=== PATIENT | male | born 1960 | race Two or more races ===

== ENCOUNTER 2018-08-05 06:30 | Emergency (ER) | payer MEDICAID, OTHER ==
[~2018-08-05] VITALS: Ht 172.7 cm; Wt 170.1 kg
[2018-08-05] MEDS ORDERED: ETOMIDATE (2MG/ML) 20ML VIAL IV ONE (08:30)
[2018-08-05 08:51] LABS: Basophils # (auto) 0 uL; Basophils % (auto) 0.3 % (0.0-2.0); Eosinophils # (auto) 0.1 uL; Eosinophils % (auto) 0.6 % (0.0-7.0); Lymphocytes # (auto) 1.3 uL; Lymphocytes % (auto) 14.9 % (10.0-50.0); Monocytes # (auto) 0.3 uL; Nucleated Red Blood Cells % 0.1 %
[2018-08-05 08:53] LABS: Hematocrit 54.5 % (41.0-53.0); Mean Corpuscular Hemoglobin 30.9 pg (28.0-32.0); Mean Corpuscular Hgb Conc. 33.1 g/dL (32.0-36.0); Mean Corpuscular Volume 93.2 fL (80.0-100.0); Monocytes % (auto) 3.4 % (0.0-12.0); Neutrophils # (auto) 6.9 uL; Neutrophils % (auto) 80.8 % (37.0-80.0); Platelet Count (auto) 225 10^3/uL (140-450); Red Blood Cells 5.85 10^6/uL (4.5-5.90); Red Cell Distribution Width 15.2 % (11.8-14.3); White Blood Cell 8.5 10^3/uL (4.4-10.8)
[2018-08-05 09:08] LABS: Albumin 3.3 g/dL (3.4-5.0); Calcium 7.9 mg/dL (8.5-10.1); Potassium 4.2 mmol/L (3.5-5.1)
[2018-08-05 09:13] LABS: BUN/Creatinine Ratio 16.3; Bilirubin, Total 0.4 mg/dL (0.2-1.0); Total Protein 7.4 g/dL (6.4-8.2)
[2018-08-05] MEDS ORDERED: SODIUM CHLORIDE 0.9% 1,000 ML IV ONE (09:43)
[2018-08-05 11:57] VITALS: BP 137/100
== END 2018-08-05 12:11 | disposition home or self-care (01) ==
LOC: ER 06:30
DX: S43.015A Anterior dislocation of left humerus, initial encounter (principal); W18.39XA Other fall on same level, initial encounter; Y93.89 Activity, other specified; Y99.8 Other external cause status; Y92.89 Other specified places as the place of occurrence of the external cause
CPT/HCPCS: 23650; 36415; 73020; 80053; 80320; 85025

== ENCOUNTER 2022-09-14 07:54 | Inpatient (IN) | payer MEDICAID ==
[~2022-09-14] VITALS: Ht 172.7 cm; Wt 153.5 kg
[2022-09-14 09:01] LABS: Basophils # (auto) 0.1 10 ^3/uL (0-0.2); Basophils % (auto) 1.2 % (0.0-2.0); Eosinophils # (auto) 0.1 10 ^3/uL (0-0.8); Eosinophils % (auto) 2.2 % (0.0-7.0); Hematocrit 51.6 % (41.0-53.0); Lymphocytes # (auto) 0.9 10 ^3/uL (0.4-5.4); Lymphocytes % (auto) 14.2 % (10.0-50.0); Mean Corpuscular Hemoglobin 33.6 pg (28.0-32.0); Mean Corpuscular Hgb Conc. 34.9 g/dL (32.0-36.0); Mean Corpuscular Volume 96.1 fL (80.0-100.0); Monocytes # (auto) 0.4 10 ^3/uL (0-1.3); Monocytes % (auto) 6.8 % (0.0-12.0); Neutrophils # (auto) 4.9 10 ^3/uL (1.6-8.6); Neutrophils % (auto) 75.6 % (37.0-80.0); Nucleated Red Blood Cells % 0.2 %; Red Blood Cells 5.37 10^6/uL (4.5-5.90); Red Cell Distribution Width 15.7 % (11.8-14.3); White Blood Cell 6.5 10^3/uL (4.4-10.8)
[2022-09-14 09:13] LABS: Albumin 3.3 g/dL (3.4-5.0); BUN/Creatinine Ratio 16.3; Bilirubin, Total 2.2 mg/dL (0.2-1.0); Calcium 8.7 mg/dL (8.5-10.1); Potassium 3.8 mmol/L (3.5-5.1); Total Protein 7.3 g/dL (6.4-8.2)
[2022-09-14 11:15] LABS: Urine Bacteria NONE SEEN /hpf (None Seen); Urine Blood Negative /uL (Negative); Urine Mucus FEW (None Seen); Urine Specific Gravity 1.025 (1.001-1.035); Urine WBC 10 /hpf (0 - 3)
[2022-09-14] MEDS ORDERED: ACETAMINOPHEN 325 MG TAB PO PRN (12:15)
[2022-09-14] MEDS ORDERED: DOCUSATE SOD 100 MG CAP PO PRN (12:15)
[2022-09-14] MEDS ORDERED: MORPHINE SULFATE INJ 2 MG/ml SYRG IV PRN (12:15)
[2022-09-14] MEDS ORDERED: ONDANSETRON HCL 4 MG/2 ML VIAL IV PRN (12:15)
[2022-09-14] MEDS ORDERED: ENOXAPARIN SOD 40 MG/0.4 ML SYRINGE SC ONE (14:00)
[2022-09-14] MEDS ORDERED: FUROSEMIDE 40 MG/4 ML VIAL IV ONE (14:00)
[2022-09-14] MEDS ORDERED: hydrALAZINE HCL 20 MG/ML VL IV PRN (14:00)
[2022-09-14] MEDS ORDERED: cefTRIAXone 1GM/50ML D5W 50 ML IV ONE (14:15)
[2022-09-14] MEDS ORDERED: METOPROLOL TARTRATE 25 MG TAB PO ONE (17:00)
[2022-09-14 22:00] VITALS: BP 144/70
[2022-09-14] MEDS: METOPROLOL TARTRATE 25 MG TAB PO SCH (23:17)
[2022-09-15 05:00] VITALS: BP 126/94
[2022-09-15 05:46] LABS: Basophils # (auto) 0.1 10 ^3/uL (0-0.2); Eosinophils # (auto) 0.4 10 ^3/uL (0-0.8); Lymphocytes # (auto) 1.1 10 ^3/uL (0.4-5.4); Monocytes # (auto) 0.5 10 ^3/uL (0-1.3); Neutrophils # (auto) 3.9 10 ^3/uL (1.6-8.6)
[2022-09-15 05:48] LABS: Basophils % (auto) 1.3 % (0.0-2.0); Eosinophils % (auto) 6.9 % (0.0-7.0); Hematocrit 49.8 % (41.0-53.0); Lymphocytes % (auto) 19.1 % (10.0-50.0); Mean Corpuscular Hemoglobin 34.6 pg (28.0-32.0); Mean Corpuscular Volume 96.1 fL (80.0-100.0); Neutrophils % (auto) 64.7 % (37.0-80.0); Nucleated Red Blood Cells % 0.3 %; Red Blood Cells 5.19 10^6/uL (4.5-5.90); Red Cell Distribution Width 15.9 % (11.8-14.3)
[2022-09-15 06:13] LABS: Calcium 8.5 mg/dL (8.5-10.1); Potassium 3.4 mmol/L (3.5-5.1); Total Protein 6.8 g/dL (6.4-8.2)
[2022-09-15 06:15] LABS: Albumin 2.9 g/dL (3.4-5.0); BUN/Creatinine Ratio 17.6
[2022-09-15] MEDS: cefTRIAXone 1GM/50ML D5W 50 ML IV SCH (08:52)
[2022-09-15 09:00] VITALS: BP 134/95
[2022-09-15] MEDS: ENOXAPARIN SOD 40 MG/0.4 ML SYRINGE SC SCH (09:31)
[2022-09-15] MEDS: METOPROLOL TARTRATE 25 MG TAB PO SCH ×2 (09:31→21:55)
[2022-09-15] MEDS: FUROSEMIDE 40 MG/4 ML VIAL IV SCH (09:31)
[2022-09-15] MEDS ORDERED: cefTRIAXone 1GM/50ML D5W 50 ML IV SCH (10:00)
[2022-09-15 13:00] VITALS: BP 141/98
[2022-09-15 17:00] VITALS: BP 129/79
[2022-09-15 22:00] VITALS: BP 116/69
[2022-09-16 05:00] VITALS: BP 105/65
[2022-09-16 09:00] VITALS: BP 110/74
[2022-09-16] MEDS: ENOXAPARIN SOD 40 MG/0.4 ML SYRINGE SC SCH (10:09)
[2022-09-16] MEDS: cefTRIAXone 1GM/50ML D5W 50 ML IV SCH (10:09)
[2022-09-16] MEDS: METOPROLOL TARTRATE 25 MG TAB PO SCH ×2 (10:10→21:48)
[2022-09-16] MEDS: FUROSEMIDE 40 MG/4 ML VIAL IV SCH (10:10)
[2022-09-16 13:00] VITALS: BP 127/87
[2022-09-16 16:28] VITALS: BP 105/78
[2022-09-16 22:00] VITALS: BP 109/72
[2022-09-17 05:00] VITALS: BP 120/91
[2022-09-17 08:35] VITALS: BP 122/77
[2022-09-17] MEDS: METOPROLOL TARTRATE 25 MG TAB PO SCH ×2 (09:38→21:34)
[2022-09-17] MEDS: FUROSEMIDE 40 MG/4 ML VIAL IV SCH (09:38)
[2022-09-17] MEDS: ENOXAPARIN SOD 40 MG/0.4 ML SYRINGE SC SCH (09:38)
[2022-09-17] MEDS: cefTRIAXone 1GM/50ML D5W 50 ML IV SCH (11:48)
[2022-09-17 12:43] VITALS: BP 115/76
[2022-09-17 16:00] VITALS: BP 122/83
[2022-09-17 22:51] VITALS: BP 111/85
[2022-09-18 05:00] VITALS: BP 133/93
[2022-09-18 09:00] VITALS: BP 143/104
[2022-09-18] MEDS: cefTRIAXone 1GM/50ML D5W 50 ML IV SCH (09:43)
[2022-09-18] MEDS: ENOXAPARIN SOD 40 MG/0.4 ML SYRINGE SC SCH (09:44)
[2022-09-18] MEDS: METOPROLOL TARTRATE 25 MG TAB PO SCH ×2 (09:45→22:28)
[2022-09-18] MEDS: FUROSEMIDE 40 MG/4 ML VIAL IV SCH (09:45)
[2022-09-18 13:00] VITALS: BP 126/72
[2022-09-18 17:00] VITALS: BP 135/73
[2022-09-18 22:00] VITALS: BP 110/85
[2022-09-19 05:00] VITALS: BP 112/68
[2022-09-19 08:30] VITALS: BP 107/64
[2022-09-19] MEDS: FUROSEMIDE 40 MG/4 ML VIAL IV SCH (09:46)
[2022-09-19] MEDS: METOPROLOL TARTRATE 25 MG TAB PO SCH ×2 (09:46→22:14)
[2022-09-19] MEDS: ENOXAPARIN SOD 40 MG/0.4 ML SYRINGE SC SCH (09:47)
[2022-09-19] MEDS: cefTRIAXone 1GM/50ML D5W 50 ML IV SCH (09:47)
[2022-09-19 12:30] VITALS: BP 131/90
[2022-09-19 17:00] VITALS: BP 114/83
[2022-09-19 22:00] VITALS: BP 119/86
[2022-09-20 05:00] VITALS: BP 122/78
[2022-09-20] MEDS: HYDROcodone-ACET 5/325MG TAB PO PRN ×2 (06:39→15:58)
[2022-09-20] MEDS: FUROSEMIDE 40 MG/4 ML VIAL IV SCH (08:26)
[2022-09-20] MEDS: ENOXAPARIN SOD 40 MG/0.4 ML SYRINGE SC SCH (08:26)
[2022-09-20] MEDS: cefTRIAXone 1GM/50ML D5W 50 ML IV SCH (08:26)
[2022-09-20] MEDS: METOPROLOL TARTRATE 25 MG TAB PO SCH ×2 (08:26→20:54)
[2022-09-20 08:30] VITALS: BP 134/99
[2022-09-20] MEDS ORDERED: ADENOSINE IV STA (10:28)
[2022-09-20] MEDS ORDERED: GIVE UN DILUTED IV STA (10:28)
[2022-09-20 10:30] VITALS: BP 115/75
[2022-09-20 12:30] VITALS: BP 108/79
[2022-09-20 17:00] VITALS: BP 119/79
[2022-09-21 05:00] VITALS: BP 109/74
[2022-09-21] MEDS: HYDROcodone-ACET 5/325MG TAB PO PRN (05:49)
[2022-09-21 09:00] VITALS: BP 119/75
[2022-09-21] MEDS: cefTRIAXone 1GM/50ML D5W 50 ML IV SCH (09:27)
[2022-09-21] MEDS: FUROSEMIDE 40 MG/4 ML VIAL IV SCH (09:27)
[2022-09-21] MEDS: ENOXAPARIN SOD 40 MG/0.4 ML SYRINGE SC SCH (09:27)
[2022-09-21] MEDS: METOPROLOL TARTRATE 25 MG TAB PO SCH ×2 (09:28→21:42)
[2022-09-21] MEDS ORDERED: LISI2.5T47 PO (11:15)
[2022-09-21] MEDS ORDERED: ATOR20TA PO (11:15)
[2022-09-21] MEDS ORDERED: MET25T PO (11:15)
[2022-09-21] MEDS ORDERED: FURO1TAB31 PO (11:15)
[2022-09-21 13:00] VITALS: BP 125/73
[2022-09-21 14:47] LABS: INR 1.12 (0.9-1.15)
[2022-09-21 17:00] VITALS: BP 129/74
[2022-09-21 22:00] VITALS: BP 118/80
[2022-09-22 05:00] VITALS: BP 82/57
[2022-09-22 09:00] VITALS: BP 105/66
[2022-09-22] MEDS: FUROSEMIDE 40 MG/4 ML VIAL IV SCH (09:35)
[2022-09-22] MEDS: METOPROLOL TARTRATE 25 MG TAB PO SCH ×2 (09:35→21:40)
[2022-09-22] MEDS: ENOXAPARIN SOD 40 MG/0.4 ML SYRINGE SC SCH (09:36)
[2022-09-22 13:00] VITALS: BP 120/77
[2022-09-23 05:00] VITALS: BP 117/80
[2022-09-23 08:29] VITALS: BP 148/92
[2022-09-23 09:19] LABS: Basophils # (auto) 0 10 ^3/uL (0-0.2); Basophils % (auto) 0.6 % (0.0-2.0); Eosinophils # (auto) 0.5 10 ^3/uL (0-0.8); Eosinophils % (auto) 8.9 % (0.0-7.0); Hematocrit 51.4 % (41.0-53.0); Hemoglobin 17.7 g/dL (13.5-17.5); Lymphocytes # (auto) 1.2 10 ^3/uL (0.4-5.4); Lymphocytes % (auto) 22.3 % (10.0-50.0); Mean Corpuscular Hemoglobin 33.7 pg (28.0-32.0); Mean Corpuscular Hgb Conc. 34.4 g/dL (32.0-36.0); Monocytes # (auto) 0.5 10 ^3/uL (0-1.3); Monocytes % (auto) 8.6 % (0.0-12.0); Neutrophils # (auto) 3.3 10 ^3/uL (1.6-8.6); Neutrophils % (auto) 59.6 % (37.0-80.0); Nucleated Red Blood Cells % 0.1 %; Red Blood Cells 5.25 10^6/uL (4.5-5.90); Red Cell Distribution Width 15.5 % (11.8-14.3); White Blood Cell 5.5 10^3/uL (4.4-10.8)
[2022-09-23] MEDS: ENOXAPARIN SOD 40 MG/0.4 ML SYRINGE SC SCH (09:30)
[2022-09-23] MEDS: METOPROLOL TARTRATE 25 MG TAB PO SCH ×2 (09:30→22:56)
[2022-09-23] MEDS: FUROSEMIDE 40 MG/4 ML VIAL IV SCH (09:30)
[2022-09-23 09:38] LABS: BUN/Creatinine Ratio 14.1; Calcium 8.6 mg/dL (8.5-10.1); Potassium 4.6 mmol/L (3.5-5.1)
[2022-09-23] MEDS ORDERED: IODIXANOL 320MG/ML 100ML BTL IV ONE ×2 (09:49→10:39)
[2022-09-23] MEDS ORDERED: ANGIOMAX 250 MG VIAL IV ONE ×2 (09:55→10:44)
[2022-09-23] MEDS ORDERED: VERAPAMIL 2.5MG/ML INJ 2ML VIAL IV ONE (09:55)
[2022-09-23] MEDS ORDERED: MIDAZOLAM HCL 2MG/2ML 2ml VIAL (1mg/ml) ONE (09:56)
[2022-09-23] MEDS ORDERED: fentaNYL CITRATE 100 MCG/2 ML VL ONE (09:56)
[2022-09-23] MEDS ORDERED: SODIUM CHL 0.9% 0 ML ONE (09:57)
[2022-09-23] MEDS ORDERED: HEPARIN SODIUM (PORCINE) 5000 UNITS/ML 1ML VIAL ONE (09:58)
[2022-09-23] MEDS ORDERED: LIDOCAINE 2%HCL (LOCAL ANESTH.) INJ 10ml MDV ONE (09:58)
[2022-09-23] MEDS ORDERED: SODIUM CHL 0.9% 50 ML ONE (10:44)
[2022-09-23] MEDS ORDERED: ASPirin 325 MG TAB ONE (10:50)
[2022-09-23] MEDS ORDERED: TICAGRELOR 90 MG TAB ONE (10:50)
[2022-09-23] MEDS: HYDROcodone-ACET 5/325MG TAB PO PRN (12:30)
[2022-09-23 16:28] VITALS: BP 113/82
[2022-09-23] MEDS ORDERED: CLOPIDOGREL 300 MG TAB PO ONE (19:30)
[2022-09-23 22:00] VITALS: BP 109/81
[2022-09-24 05:00] VITALS: BP 115/78
[2022-09-24 09:00] VITALS: BP 123/90
[2022-09-24] MEDS ORDERED: CLOPIDOGREL BISULFATE 75 MG TAB PO SCH (10:00)
[2022-09-24] MEDS: ENOXAPARIN SOD 40 MG/0.4 ML SYRINGE SC SCH (10:10)
[2022-09-24] MEDS: METOPROLOL TARTRATE 25 MG TAB PO SCH (10:11)
[2022-09-24] MEDS: FUROSEMIDE 40 MG/4 ML VIAL IV SCH (10:11)
[2022-09-24] MEDS ORDERED: ASPirin 81 mg TAB PO ONE (11:00)
[2022-09-24 13:00] VITALS: BP 123/87
[2022-09-24 16:28] VITALS: BP 120/78
[2022-09-24 17:06] VITALS: BP 129/87
[2022-09-25] MEDS ORDERED: ASPirin 81 mg TAB PO SCH (10:00)
== END 2022-09-24 17:10 | disposition home or self-care (01) | DRG 710 ==
LOC: ER 07:54 → EDBD 07:54 → TELE 12:19 → TELE-WESTW 21:58
PROVIDERS: ADMIT Internal Medicine; ATTEND Internal Medicine
PROC: 4A023N7 Measurement of Cardiac Sampling and Pressure, Left Heart, Percutaneous Approach (ICD-10-PCS; principal; 2022-09-23)
PROC: 02703ZZ Dilation of Coronary Artery, One Artery, Percutaneous Approach (ICD-10-PCS; 2022-09-23)
PROC: B2111ZZ Fluoroscopy of Multiple Coronary Arteries using Low Osmolar Contrast (ICD-10-PCS; 2022-09-23)
DX: A41.9 Sepsis, unspecified organism (principal); I50.33 Acute on chronic diastolic (congestive) heart failure; I47.20 Ventricular tachycardia, unspecified; E44.0 Moderate protein-calorie malnutrition; E88.09 Other disorders of plasma-protein metabolism, not elsewhere classified; I11.0 Hypertensive heart disease with heart failure; I25.119 Atherosclerotic heart disease of native coronary artery with unspecified angina pectoris; Z20.822 Contact with and (suspected) exposure to COVID-19; N30.00 Acute cystitis without hematuria; I16.1 Hypertensive emergency; E66.01 Morbid (severe) obesity due to excess calories; Z80.3 Family history of malignant neoplasm of breast; Z85.528 Personal history of other malignant neoplasm of kidney; Z82.49 Family history of ischemic heart disease and other diseases of the circulatory system; Z68.43 Body mass index [BMI] 50.0-59.9, adult
CPT/HCPCS: 36415; 71045; 73562; 78452; 80048; 80053; 81001; 83880; 84484; 85025; 85610; 86850; 86900; 86901; 87086; 87426; 93005; 93017; 93306; 99152; 99153; G0378; J0153; J0696; J2001; J2250; J2405; Q9967

== ENCOUNTER 2024-08-06 11:42 | Inpatient (IN) | payer MEDICAID ==
[~2024-08-06] VITALS: Ht 170.2 cm; Wt 159.3 kg
[~2024-08-06 11:42] MED LIST: ATOR20TA PO; ATOR80TA PO; CLOP75TA70 PO; FURO1TAB31 PO; HYDR-4798 PO; HYDR12.59 PO; LISI2.5T47 PO; MET25T PO; METO-159 PO; NALO1TAB4 PO
--- NOTE | 2024-08-06 11:49 | ED.PDOC ---
SOB-HPI HPI Comments 64-year-old male brought in by EMS from home complaining of shortness of breath for the last week. Patient states the symptoms were worse when lying flat, and he is unable to sleep due to the difficulty breathing when lying flat, which causes anxiety. He also states he has had a cough with sputum. He had sharp chest pain 2 days ago but denies any chest pain now. States he has a headache and cold sweats, and states that he becomes lightheaded when ambulating. He denies any nausea, vomiting, diaphoresis or edema. Of note, blood pressure recorded by EMS was 184/110. Time Seen by MD: 11:46 Primary Care Provider: DENIES Past Medical History PAST MEDICAL HISTORY: Cancer, HTN Surgical History: Hernia Repair Family History Family History: Reviewed,noncontributory to illness Social History Smoker: Quit Greater Than 1 Year Alcohol: Occasionally Drugs: Denies Drug Use Lives In: Home Physical Exam General Appearance: Mild Distress, Obese HEENT: Other (Pupils symmetric, moist mucous membranes) Neck: Full Range of Motion, Normal Inspection Respiratory: Decreased Breath Sounds, No Accessory Muscle Use, Respiratory Distress, Rhonchi Cardiovascular: No Edema, No JVD, Regular Rate/Rhythm Breast Exam: Deferred Gastrointestinal: Non Tender, Soft Genitalia: Deferred Pelvic: Deferred Rectal: Deferred Extremities: Normal inspection, Normal range of motion, Non-tender, No pedal edema Neurologic: Alert (Oriented x4), Normal Affect, Normal Mood, Other (Ambulatory. No gross focal deficit.) Cerebellar Function: NOT DONE Reflexes: NOT DONE Skin: Dry, Normal Color, Warm Lymphatic: NOT DONE EKG EKG : Comments Sinus rhythm, rate 63, normal intervals, normal axis, normal QRS, no ST/T changes. Was a procedure done? Was a procedure done?: No Differential Dx Differential Diagnosis: Asthma, Bronchitis, CHF, COPD, Hypertension, Hyperventilation, Pneumonia, Pulmonary Embolism, Respiratory Distress, URI X-Ray, Labs, Meds, VS Vital Signs Date Time Temp Pulse Resp B/P (MAP) Pulse Ox O2 Delivery O2 Flow Rate FiO2 08/06/24 17:32 97.9 68 19 177/108 (131) 95 97.9 08/06/24 17:32 177/108 08/06/24 14:57 67 16 145/80 (101) 94 08/06/24 14:57 67 16 94 Room Air* 0 21 08/06/24 14:57 145/80 08/06/24 12:16 20 94 Room Air* 0 21 08/06/24 11:46 97.5 65 20 184/110 (134) 95 08/06/24 11:45 Room Air* 0 21 08/06/24 11:44 64 Lab Test 08/06/24 15:05 08/06/24 14:23 08/06/24 13:00 Range/Units Influenza Type A Antigen Negative Negative Influenza Type B Antigen Negative Negative SARS-CoV-2 Antigen (Rapid) Negative NEGATIVE Troponin I High Sensitivity 9 11 </=54 ng/L White Blood Count 7.2 4.4-10.8 10^3/uL Red Blood Count 5.92 H 4.5-5.90 10^6/uL Hemoglobin 18.4 H 13.5-17.5 g/dL Hematocrit 55.0 H 41.0-53.0 % Mean Corpuscular Volume 93.0 80.0-100.0 fL Mean Corpuscular Hemoglobin 31.1 28.0-32.0 pg Mean Corpuscular Hemoglobin Concent 33.4 32.0-36.0 g/dL Red Cell Distribution Width 14.8 H 11.8-14.3 % Platelet Count 194 140-450 10^3/uL Mean Platelet Volume 8.0 6.9-10.8 fL Neutrophils (%) (Auto) 65.1 37.0-80.0 % Lymphocytes (%) (Auto) 22.0 10.0-50.0 % Monocytes (%) (Auto) 5.3 0.0-12.0 % Eosinophils (%) (Auto) 6.4 0.0-7.0 % Basophils (%) (Auto) 1.2 0.0-2.0 % Neutrophils # (Auto) 4.7 1.6-8.6 10 ^3/uL Lymphocytes # (Auto) 1.6 0.4-5.4 10 ^3/uL Monocytes # (Auto) 0.4 0-1.3 10 ^3/uL Eosinophils # (Auto) 0.5 0-0.8 10 ^3/uL Basophils # (Auto) 0.1 0-0.2 10 ^3/uL Nucleated Red Blood Cells 0.6 % Sodium Level 139 136-145 mmol/L Potassium Level 4.6 3.5-5.1 mmol/L Chloride Level 105 98-107 mmol/L Carbon Dioxide Level 27 20-31 mmol/L Anion Gap 7 5-15 Blood Urea Nitrogen 15 9-23 mg/dL Creatinine 0.90 0.700-1.30 mg/dL Glomerular Filtration Rate Calc 96 >90 mL/min BUN/Creatinine Ratio 16.7 10.0-20.0 Serum Glucose 113 H 74-106 mg/dL Lactic Acid Level 1.0 0.4-2.0 mmol/L Calcium Level 9.9 8.7-10.4 mg/dL B-Type Natriuretic Peptide 258.39 0-100 pg/mL Current Medications Medications (Trade) Dose Ordered Sig/Tayo Route Start Time Stop Time Status Last Admin Albuterol (Ventolin Medneb) 5 mg ONCE ONCE NEB 08/06/24 12:00 08/06/24 12:01 DC 08/06/24 12:17 Ipratropium [place] (Atrovent Medneb) 0.5 mg ONCE ONCE NEB 08/06/24 12:00 08/06/24 12:01 DC 08/06/24 12:16 Methylprednisolone Sodium Succinate (Solu Medrol) 125 mg ONCE ONCE IV 08/06/24 12:00 08/06/24 12:01 DC 08/06/24 12:46 Nitroglycerin (Nitro-Bid) 1 pkg ONCE ONCE TD 08/06/24 14:30 08/06/24 14:31 DC 08/06/24 14:57 Acetaminophen (Tylenol Tablet) 975 mg ONCE ONCE PO 08/06/24 15:15 08/06/24 15:16 DC 08/06/24 15:38 [place] [id number] Ph: [phone] DIAGNOSTIC IMAGING Diagnostic Imaging Report : [id number] Signed PATIENT: MINNIE MA ACCT: [id number] UNIT: [id number] : 1960 LOC: ER ROOM / BED: / AGE / SEX: 64 / M ADM STATUS: REG ER SERVICE 1157 ORDERING PHYSICIAN: BABAK SPARKS MD PROCEDURE(s): CXRP - CHEST PORTABLE REASON: sob ORDER NUMBER(s): [id number], ACCESSION NUMBER(s): [id number] EXAM: XY CHEST PORTABLE Indication: sob Technique: Single frontal view of the chest was obtained Comparison: CHEST PORTABLE on DOS: 09/14/22, CXRP on DOS: 09/14/22 FINDINGS: Lines and Tubes: None Lungs: No focal consolidation. Pleura: No effusion. No pneumothorax. Cardiomediastinal contours: Unremarkable Bones: No acute osseous abnormality. IMPRESSION: No acute cardiopulmonary disease. ATED BY: JERAMIE GROVE MD DICTATED DATE/TIME: 08/06/241244 SIGNED BY: JERAMIE GROVE MD SIGNED DATE/TIME: 08/06/241244 CC: X-Ray, Labs, Meds, VS Comment 64-year-old male with history of hypertension, CAD status post PTCA and former smoker complaining of shortness a breath, orthopnea and dyspnea on exertion Vitals remarkable for BP 184/110 Exam remarkable for rhonchi and respiratory distress Rhythm strip independently interpreted by me: Sinus rhythm, rate 63, no ectopy. Chest x-ray unremarkable CBC, basic metabolic panel, lactate and troponin unremarkable. BNP indeterminate at 258.39 Patient treated with the following in the ED: Albuterol 5 mg/Atrovent 0.5 mg nebulized, Solu-Medrol 125 mg IV, Nitro-Bid 1/2 inch to chest wall On re-evaluation, patient states dyspnea has improved. Chest is clear, oxygen saturation is normal on room air, and blood pressure has improved. Previous visits reviewed. Echo in 2022 showed ejection fraction 55%. Plan is to admit the patient for Cardiology re-evaluation for CHF, and for respiratory support as needed. Time of 1ST Reevaluation: 14:20 Reevaluation 1ST: Improved Patient Education/Counseling: Diagnosis, Treatment Family Education/Counseling: No Family Present Departure 1 Departure Time of Disposition: 14:20 Impression: Primary Impression: Orthopnea Additional Impressions: Accelerated hypertension Bronchospasm Disposition: ADMITTED INPATIENT Admit to: [facility] [place] Condition: Guarded Critical Care Note Critical Care Time?: No Stability Stability form required: No Heart Score Heart Score: Heart Score Response (Comments) Value History Moderate Suspicious 1 EKG Normal 0 Age 45-64 1 Risk Factors >3 or Hx ASHD 2 Troponin Normal limit 0 Total 4 I personally scribed for BABAK SPARKS MD ([email or web address]) on 08/06/24 at 13:14. Electronically submitted by Chasidy Dutton ([email or web address]). BABAK SPARKS MD Aug 06, 2024 11:49
--- NOTE | 2024-08-06 11:52 | ECG ---
[facility] Test Date: 2024-08-06 Test Time: 11:44:22 Pat Name: MINNIE MA Department: ER Room: 0284T Gender: M Feeder Loader: ERROL : 1960 Requested By: BABAK MUJICA Order Number: [id number] Reading MD: Ildefonso Hobson Measurements Intervals [place] Rate: 63 P: 10 [place]: 177 QRS: 40 QRSD: 96 T: 4 QT: 390 QTc: 400 Interpretive Statements Sinus rhythm Baseline wander in lead(s) V4 Electronically Signed On 08-11-2024 15:14:33 PST by Ildefonso Hobson Please click the below link to view image of tracing.
[2024-08-06] MEDS: IPRATROPIUM BROM 0.5 MG/2.5ML INH SOL NEB ONE (12:16)
[2024-08-06] MEDS: ALBUTEROL SULF 2.5 MG/0.5ML(0.5%) NEB SOLN NEB ONE (12:17)
[2024-08-06] MEDS: methylPREDNISolone SOD SUCC 125 MG/2 ML VL IV ONE (12:46)
--- NOTE | 2024-08-06 12:46 | DVH ---
EXAM: XY CHEST PORTABLE Indication: sob Technique: Single frontal view of the chest was obtained Comparison: CHEST PORTABLE on DOS: 09/14/22, CXRP on DOS: 09/14/22 FINDINGS: Lines and Tubes: None Lungs: No focal consolidation. Pleura: No effusion. No pneumothorax. Cardiomediastinal contours: Unremarkable Bones: No acute osseous abnormality. IMPRESSION: No acute cardiopulmonary disease.
[2024-08-06 13:21] LABS: Basophils # (auto) 0.1 10 ^3/uL (0-0.2); Lymphocytes # (auto) 1.6 10 ^3/uL (0.4-5.4); Monocytes # (auto) 0.4 10 ^3/uL (0-1.3); Neutrophils # (auto) 4.7 10 ^3/uL (1.6-8.6); White Blood Cell 7.2 10^3/uL (4.4-10.8)
[2024-08-06 13:24] LABS: Basophils % (auto) 1.2 % (0.0-2.0); Eosinophils # (auto) 0.5 10 ^3/uL (0-0.8); Eosinophils % (auto) 6.4 % (0.0-7.0); Hemoglobin 18.4 g/dL (13.5-17.5); Mean Corpuscular Hemoglobin 31.1 pg (28.0-32.0); Mean Corpuscular Hgb Conc. 33.4 g/dL (32.0-36.0); Monocytes % (auto) 5.3 % (0.0-12.0); Neutrophils % (auto) 65.1 % (37.0-80.0); Nucleated Red Blood Cells % 0.6 %; Platelet Count (auto) 194 10^3/uL (140-450); Red Blood Cells 5.92 10^6/uL (4.5-5.90); Red Cell Distribution Width 14.8 % (11.8-14.3)
[2024-08-06 13:35] LABS: Chloride 105 mmol/L (98-107); Potassium 4.6 mmol/L (3.5-5.1); Sodium 139 mmol/L (136-145)
[2024-08-06 13:36] LABS: Anion Gap 7 (5-15); Calcium 9.9 mg/dL (8.7-10.4); Carbon Dioxide 27 mmol/L (20-31)
[2024-08-06 13:41] LABS: BUN/Creatinine Ratio 16.7 (10.0-20.0); Blood Urea Nitrogen 15 mg/dL (9-23); Glucose 113 mg/dL (74-106)
[2024-08-06 14:57] VITALS: PULSE 67; RESP 16; O2SAT 94
[2024-08-06] MEDS: NITROGLYCERIN 2% OINT 1GM PKG TD ONE (14:57)
[2024-08-06] MEDS: ACETAMINOPHEN 325 MG TAB PO ONE ×2 (15:38→23:16)
[2024-08-06 16:11] LABS: Rapid Influenza A Negative (Negative); Rapid Influenza B Negative (Negative)
[2024-08-06 16:13] LABS: COVID19 ANTIGEN SOFIA FIA NEGATIVE (NEGATIVE)
[2024-08-06] MEDS ORDERED: NITROGLYCERIN 0.4 MG SL TAB SL PRN (19:30)
[2024-08-06] MEDS ORDERED: MORPHINE SULFATE INJ 2 MG/ml SYRG IV PRN (19:30)
[2024-08-06] MEDS ORDERED: ALBUTEROL SULF 2.5 MG/0.5ML(0.5%) NEB SOLN NEB PRN (19:45)
[2024-08-06] MEDS ORDERED: IPRATROPIUM BROM 0.5 MG/2.5ML INH SOL NEB PRN (19:45)
[2024-08-06] MEDS ORDERED: cloNIDine HCL 0.1 MG TAB PO PRN (20:15)
--- NOTE | 2024-08-06 20:23 | DVHHPRES ---
History of Present Illness Resident Creating Document: LUKE HOANG RESIDENT Reason for Visit: shortness of breath, chest pain History of Present Illness This is 64-year-old man with a past medical history of coronary artery disease status post stent in 2022, hypertension, hyperlipidemia, kidney cancer diagnosed in 2019 presented to the ED with shortness of breaths, chest pain, and orthopnea of 1 day's duration. According to the patient he was home yesterday where he realize that he was becoming short of breath. The shortness of breath worsens whenever he tries to lying down he feels like he was about to therefore he has not been able to lie flat rather he stays up in a chair evening for sleep. He reported that in the past couple of days he has been having some intermittent cough with the production of greenish sputum and he had a little bit of chills and shaking yesterday. Given that he was unable to lie flat and also with the shortness of breath coupled with with his previous history of myocardial infarction with a stent patient decided to come to the ED for further evaluation and management. Patient's initial vitals include temperature of 97.5, pulse of 65, RR: 20 and a blood pressure of 1 84/110. Initial lab work grossly unremarkable from both hematological and chemistry. Troponin levels were negative;however BNP was a little elevated with the finding of 258. Patient had a chest x-ray done which reveal any cardiopulmonary disease however it shows some issues congestion throughout the lungs with cephalization of the veins of the vessels. Twelve lead EKG did not reveal any ST abnormalities in all the leads. Echo is currently pending. Cardiovascular: HTN, MS, hyperipidemia Musculoskeletal: Chronic low back pain, Osteoarthritis Past Surgical History: Hernia Repair (X4) Family History: Cancer (mother) Smoke: Quit (use to smoke a pack/week for 20 years) ALCOHOL: occassional Drugs: None Lives: with Family Past Social History Contruction work on disability Review of Systems Constitutional: Yes: Chills, Sweats Eyes: Other (Patient) Respiratory: Cough, Shortness of breath, SOB with excertion Cardiovascular: Chest Pain, Palpitations, Orthopnea, Paroxysmal Noc. Dyspnea, Edema Gastrointestinal: Nausea; No: Vomiting, Abdominal Pain, Diarrhea, Constipation, Melena, Hematochezia, Other Genitourinary: No Dysuria, No Frequency, No Incontinence, No Hematuria, No Retention, No Other Musculoskeletal: shoulder pain, back pain, leg pain Skin: No: Rash, Lesions, Jaundice, Bruising, Other Neurological: No: Weakness, Numbness, Incoordination, Change in speech, Confusion, Seizures, Other Allergies: Coded Allergies: NO KNOWN ALLERGIES (Unverified , 08/05/18) Exam Vital Signs Vital Signs Date Time Temp Pulse Resp B/P (MAP) Pulse Ox O2 Delivery O2 Flow Rate FiO2 08/06/24 17:32 97.9 68 19 177/108 (131) 95 97.9 08/06/24 14:57 Room Air* 0 21 General Appearance: Alert, Oriented X3, Cooperative, mild distress HEENT: Atraumatic, PERRLA, EOMI, Mucous membr. moist/pink Respiratory: Other (Physical to auscultate given body habitus) Cardiovascular: Regular rate, Normal S1, Normal S2, No murmurs Abdominal: Normal bowel sounds, Other (Grossly distended abdomen, evidence of surgical scars from previous hernia repairs) Extremities: No clubbing, No cyanosis, Other (Mild pitting edema up to the mid massey) Skin: No significant lesion Neuro: Normal gait Psych/Mental Status: Mental status NL, Mood NL, Other Labs/Xrays Labs Test 08/06/24 15:05 08/06/24 14:23 08/06/24 13:00 Range/Units Influenza Type A Antigen Negative Negative Influenza Type B Antigen Negative Negative SARS-CoV-2 Antigen (Rapid) Negative NEGATIVE Troponin I High Sensitivity 9 </=54 ng/L White Blood Count 7.2 4.4-10.8 10^3/uL Red Blood Count 5.92 H 4.5-5.90 10^6/uL Hemoglobin 18.4 H 13.5-17.5 g/dL Hematocrit 55.0 H 41.0-53.0 % Mean Corpuscular Volume 93.0 80.0-100.0 fL Mean Corpuscular Hemoglobin 31.1 28.0-32.0 pg Mean Corpuscular Hemoglobin Concent 33.4 32.0-36.0 g/dL Red Cell Distribution Width 14.8 H 11.8-14.3 % Platelet Count 194 140-450 10^3/uL Mean Platelet Volume 8.0 6.9-10.8 fL Neutrophils (%) (Auto) 65.1 37.0-80.0 % Lymphocytes (%) (Auto) 22.0 10.0-50.0 % Monocytes (%) (Auto) 5.3 0.0-12.0 % Eosinophils (%) (Auto) 6.4 0.0-7.0 % Basophils (%) (Auto) 1.2 0.0-2.0 % Neutrophils # (Auto) 4.7 1.6-8.6 10 ^3/uL Lymphocytes # (Auto) 1.6 0.4-5.4 10 ^3/uL Monocytes # (Auto) 0.4 0-1.3 10 ^3/uL Eosinophils # (Auto) 0.5 0-0.8 10 ^3/uL Basophils # (Auto) 0.1 0-0.2 10 ^3/uL Nucleated Red Blood Cells 0.6 % Sodium Level 139 136-145 mmol/L Potassium Level 4.6 3.5-5.1 mmol/L Chloride Level 105 98-107 mmol/L Carbon Dioxide Level 27 20-31 mmol/L Anion Gap 7 5-15 Blood Urea Nitrogen 15 9-23 mg/dL Creatinine 0.90 0.700-1.30 mg/dL Glomerular Filtration Rate Calc 96 >90 mL/min BUN/Creatinine Ratio 16.7 10.0-20.0 Serum Glucose 113 H 74-106 mg/dL Lactic Acid Level 1.0 0.4-2.0 mmol/L Calcium Level 9.9 8.7-10.4 mg/dL B-Type Natriuretic Peptide 258.39 0-100 pg/mL Assessment/Plan Assessment/Plan Assessment Congestive heart failure Possible pneumonia gram-/ gram+ Possible COPE exacerbation, given long Acute respiratory failure, improved with breathing treatment Hypertensive urgency Hyperlipidemia Marked arthritis in all joints Morbid obesity History of coronary artery disease status post stent placement 2022 Kidney cancer diagnosed in 2019 History of hernia repair PLAN: Furosemide 20 mg BID Azithromycin and ceftriaxone lisinopril Metoprolol 25 mg Echo Atorvastatin [place] 5mg Ipratropium/albuterol PRN Code status: Full Goal of care discussed for 45 minute Case and plan discussed with Dr. Velarde Plan discussed with: Patient My Orders Orders - LUKE HOANG RESIDENT Procedure Category Date Status Time Admit ADMIT 08/06/24 Verified 19:22 Nitroglycerin PHA 08/06/24 Verified Sublingual (Ntrostat 19:30 Morphine Sulfate PHA 08/06/24 Verified Injection 19:30 Oxygen By Nasal RT 08/06/24 Verified Cannula 19:22 Stat Ekg For Chest [facility] 08/06/24 Verified Pain 19:22 Notify Md Of Changes [facility] 08/06/24 Verified From Base 19:22 Fixed Income Analyst For [facility] 08/06/24 Verified 24 Hours 19:22 Emergency Dysrhythmia [facility] 08/06/24 Verified Protocol 19:22 Rhythm Strips Once [facility] 08/06/24 Verified Every Shift 19:22 Date of Service: Aug 06, 2024 Billing Provider: JESSICA VELARDE MD Common Visit Codes: [id number] INP/OBS CARE (HIGH) LUKE HOANG RESIDENT Aug 06, 2024 20:23 JESSICA VELARDE MD Aug 06, 2024 22:51
[2024-08-06 20:30] LABS: Basophils # (auto) 0 10 ^3/uL (0-0.2); Eosinophils # (auto) 0 10 ^3/uL (0-0.8); Lymphocytes # (auto) 0.6 10 ^3/uL (0.4-5.4); Monocytes # (auto) 0 10 ^3/uL (0-1.3); Neutrophils # (auto) 5.1 10 ^3/uL (1.6-8.6); Neutrophils % (auto) 88.7 % (37.0-80.0)
[2024-08-06 20:32] LABS: Basophils % (auto) 0.4 % (0.0-2.0); Eosinophils % (auto) 0.1 % (0.0-7.0); Hematocrit 55.1 % (41.0-53.0); Hemoglobin 18.8 g/dL (13.5-17.5); Lymphocytes % (auto) 10.2 % (10.0-50.0); Mean Corpuscular Hemoglobin 31.3 pg (28.0-32.0); Mean Corpuscular Hgb Conc. 34.1 g/dL (32.0-36.0); Monocytes % (auto) 0.6 % (0.0-12.0); Nucleated Red Blood Cells % 0.4 %; Platelet Count (auto) 197 10^3/uL (140-450); Red Blood Cells 5.99 10^6/uL (4.5-5.90); Red Cell Distribution Width 15.1 % (11.8-14.3); White Blood Cell 5.7 10^3/uL (4.4-10.8)
[2024-08-06 20:40] LABS: Albumin 4.4 g/dL (3.2-4.8); Alkaline Phosphatase 108 U/L (46-116); Anion Gap 7 (5-15); BUN/Creatinine Ratio 16.3 (10.0-20.0); Blood Urea Nitrogen 17 mg/dL (9-23); Calcium 10.3 mg/dL (8.7-10.4); Carbon Dioxide 26 mmol/L (20-31); Chloride 104 mmol/L (98-107); Magnesium 1.9 mg/dL (1.6-2.6); Potassium 4.6 mmol/L (3.5-5.1); Sodium 137 mmol/L (136-145); Total Protein 7.4 g/dL (5.7-8.2)
[2024-08-06 20:53] LABS: Alanine Aminotransferase 53 U/L (7-40); Aspartate Aminotransferase 53 U/L (13-40); Bilirubin, Total 2.2 mg/dL (0.2-1.0); Glucose 157 mg/dL (74-106)
[2024-08-06] MEDS: cefTRIAXone 1GM/50ML D5W 50 ML IV SCH (21:14)
[2024-08-06] MEDS: LISINOPRIL 5 MG TAB PO ONE (21:15)
[2024-08-06 21:32] VITALS: PULSE 78; RESP 20; O2SAT 93
[2024-08-06] MEDS: AZITHROMYCIN 500MG/ 250ML 250 ML IV ONE (21:34)
[2024-08-06] MEDS: METOPROLOL TARTRATE 25 MG TAB PO SCH (22:00)
[2024-08-06 23:57] LABS: Amphetamine Screen, Urine Neg (NEGATIVE); Barbiturate Scree,Urine Neg (NEGATIVE); Benzodiazephine Screen, Urine Neg (NEGATIVE); Cannabinoid Screen, Urine Neg (NEGATIVE); Cocaine Screen, Urine Neg (NEGATIVE); Opiate Scree,Urine Neg (NEGATIVE); Phencyclidine Screen, Urine Neg (NEGATIVE)
[2024-08-07] VITALS (8 sets, daily range): BP systolic 110–134; BP diastolic 81–93; PULSE 76–90; RESP 18–20; TEMP 97.5–98.3; O2SAT 91–95
[2024-08-07 00:08] LABS: Rapid Influenza A Negative (Negative); Rapid Influenza B Negative (Negative)
[2024-08-07] MEDS: IOHEXOL 350 MG/ML 100ML IJ ONE (08:15)
--- NOTE | 2024-08-07 08:54 | DVH ---
CTA Chest with intravenous contrast INDICATION: rule out pe COMPARISON: CT ANGIO CHEST CONTRAST on DOS: 08/16/19 TECHNIQUE: Multidetector spiral CTA of the chest was performed of the chest with intravenous contras t. PULMONARY ANGIOGRAPHY PROTOCOL was utilized using a bolus-tracking technique centered on the main pulmonary artery. Coronal and sagittal multiplanar and MIP reformats were performed. Radiation Dose : 1. Chest: CTDI volume is 29.2 mGy. Dose-length product is 1109.5 mGy*cm The dose indicators for CT are the volume Computed Tomography (CT) Dose Index (CTDIvol) and the Dose Length Product (DLP), and are measured in units of mGy and mGy-cm, respectively. These indicators are not patient dose, but values generated from the CT scanner acquisition factors. The report includes radiation exposure data for exposures received during this examination. FINDINGS: Pulmonary artery: No central, lobar or proximal segmental pulmonary embolus. Lower neck: Thyroid is unremarkable. Lungs: No suspicious pulmonary nodules. There is atelectasis in the left upper lobe. Trachea and central airways: Patent. Pleura: No pneumothorax. No pleural effusions. Heart/Vascular Structures: The heart is normal in size. There are coronary artery calcifications. No pericardial effusion. Thoracic aorta is normal in caliber. No aneurysm or dissection. Lymph Nodes: No mediastinal or hilar lymphadenopathy. Esophagus:Grossly unremarkable. Musculoskeletal: Multiple old left rib fractures. Multilevel thoracic spondylosis. Body wall: Unremarkable. Upper abdomen: Gallstones. IMPRESSION: 1. No evidence of pulmonary embolism. 2. Left upper lobe atelectasis. 3. Coronary artery disease. 4. Gallstones.
[2024-08-07] MEDS: HYDROcodone-ACET 5/325MG TAB PO PRN (10:42)
[2024-08-07] MEDS: LISINOPRIL 5 MG TAB PO SCH (10:43)
[2024-08-07 10:52] LABS: Basophils # (auto) 0 10 ^3/uL (0-0.2); Basophils % (auto) 0.1 % (0.0-2.0); Eosinophils # (auto) 0 10 ^3/uL (0-0.8); Hematocrit 51.9 % (41.0-53.0); Hemoglobin 17.4 g/dL (13.5-17.5); Lymphocytes # (auto) 0.9 10 ^3/uL (0.4-5.4); Lymphocytes % (auto) 8.4 % (10.0-50.0); Mean Corpuscular Hemoglobin 30.8 pg (28.0-32.0); Mean Corpuscular Hgb Conc. 33.5 g/dL (32.0-36.0); Mean Corpuscular Volume 91.8 fL (80.0-100.0); Monocytes # (auto) 0.4 10 ^3/uL (0-1.3); Monocytes % (auto) 3.3 % (0.0-12.0); Neutrophils # (auto) 9.7 10 ^3/uL (1.6-8.6); Neutrophils % (auto) 88.2 % (37.0-80.0); Nucleated Red Blood Cells % 0.3 %; Platelet Count (auto) 199 10^3/uL (140-450); Red Blood Cells 5.65 10^6/uL (4.5-5.90); Red Cell Distribution Width 14.9 % (11.8-14.3)
[2024-08-07 11:09] LABS: Alanine Aminotransferase 39 U/L (7-40); Albumin 4.2 g/dL (3.2-4.8); Alkaline Phosphatase 91 U/L (46-116); Anion Gap 5 (5-15); Blood Urea Nitrogen 15 mg/dL (9-23); Carbon Dioxide 24 mmol/L (20-31); Chloride 107 mmol/L (98-107); Potassium 4.1 mmol/L (3.5-5.1); Sodium 136 mmol/L (136-145); Triglycerides 77 mg/dL (< 150)
[2024-08-07 11:10] LABS: Aspartate Aminotransferase 32 U/L (13-40); BUN/Creatinine Ratio 15.6 (10.0-20.0); Bilirubin, Total 2.6 mg/dL (0.2-1.0); Cholesterol 196 mg/dL (< 200); Glucose 148 mg/dL (74-106); HDL Cholesterol 61 mg/dL (40-59); LDL Cholesterol 132 mg/dL (< 100); Total Protein 7.1 g/dL (5.7-8.2)
--- NOTE | 2024-08-07 15:16 | DVHSR ---
APPROVED REPORT EXAM: LIMITED Two-dimensional and M-mode echocardiogram with Doppler and color Doppler. Blood Pressure: 145/85 mmHg INDICATION PND RISK FACTORS Obesity: Height: 5'3, Weight: 350 DIMENSIONS LVDd3.8 (3.8-5.7cm)LA (2D)4.2 (1.9-4.0cm)Aortic Root3.6 (2.0-3.7cm) LVDs2.8 (2.5-4.0cm)LA (MM) (1.9-4.0cm)Aortic Cusp Exc1.5 (1.5-2.0cm) EF (%) 60.0 (55-70%)Rt. Atrium (1.9-4.0cm)Asc. Aorta cm IVSd1.3 (0.7-1.1cm)RV (D) (1.8-2.4cm) PWd1.1 (0.7-1.1cm) Mitral Valve MitralMitral Stenosis E wave0.47m/sMV Mean GR.mmHg A wave0.69m/sMV Peak GR.mmHg E/A ratio0.72D MVAcm2 DECEL [id number] 1/2 [place] Aortic Valve Aortic ValveAortic Stenosis V11.09m/Fiona Mean GR.10mmHg V21.98m/Fiona Peak GR.16mmHg LVOT Diameter2.5 (1.8-2.4cm)Doppler AVA2.70cm2 Pulmonic Valve V20.89m/s LEFT VENTRICLE The left ventricle is of normal size. There is mild hypertrophy most prominent in the septum. Systo lic function is likely preserved and estimated at 60%. Study is inadequate to assess for wall motion abnormalities. There is impaired relaxation of the left ventricle. E to E prime ratio is in the no rmal range. RIGHT VENTRICLE Likely of normal size and systolic function. ATRIA Left atrium is of normal size. Right atrium is not well visualized. MITRAL VALVE Normal structure and function. No significant mitral regurgitation. PULMONIC VALVE Not visualized. TRICUSPID VALVE Likely of normal structure and function. PA systolic pressure could not be estimated. AORTIC VALVE Not well visualized. The leaflets appear to be moderately calcified. Mean valve gradient is 9 mm Hg with a peak velocity of 2.0 m/sec. There is no significant insufficiency. GREAT VESSELS The aortic root is of normal size. Ascending aorta isn't visualized. PERICARDIAL EFFUSION No pericardial effusion. IVC isn't well visualized. Other Information Quality : Technically LimitedRhythm : Technically limited study due to patient position.body habitus. Conclusion The study is very technically limited. The left ventricle is of normal size and likely of normal systolic function. The right ventricle is likely of normal size and systolic function. The aortic valve is moderately calcified with no evidence of hemodynamically significant stenosis. No pericardial effusion. PA systolic pressure could not be estimated.
--- NOTE | 2024-08-07 15:30 | DVH ---
CT ABDOMEN AND PELVIS WITHOUT CONTRAST CLINICAL HISTORY: history of kidney tumor TECHNIQUE: Multiple contiguous axial images of the abdomen and pelvis without intravenous contrast. The images were reformatted degenerate coronal and sagittal reconstructions. All CT scans at this medical facility are performed using dose modulation techniques as appropriate t o a performed exam including the following:Automated exposure control was utilized; adjustment of the MA and/or KV according to patient size; and use of iterative reconstruction technique. Radiation Dose Information: CT Dose: CTDI volume is 25.34 mGy. Dose-length product is 1470.22 mGy*cm Comparison: None FINDINGS: Evaluation of the abdomen and pelvis is limited without intravenous contrast. There is a mildly heterogeneous exophytic mass in the lower pole of the right kidney measuring approx imately 6.4 x 6.8 cm. There is no evidence of a left renal mass. There are vascular calcifications in both kidneys. There is no evidence of hydronephrosis. There are small calcified gallstones in the gallbladder. The liver, pancreas, adrenal glands, and spleen appear within normal limits. There is no gross evidence of abdominal lymphadenopathy. There is no free fluid or free air. The stomach grossly appears unremarkable. The small and large bowel loops demonstrate normal caliber . There are scattered diverticula in the distal colon without evidence of acute diverticulitis. The abdominal aorta and IVC appear within normal limits. The bladder appears unremarkable for the degree of distention. Pelvic organ appears within normal domínguez its. There is no gross evidence of a pelvic mass. There is no free fluid collection. Lung bases are clear. There is no acute osseous abnormality. There are multilevel degenerative changes in lumbar spine. IMPRESSION: 1. Mildly heterogeneous exophytic mass in the lower pole of the right kidney measuring 6.4 x 6.8 cm c oncerning for primary renal malignancy. Further evaluation with MRI abdomen with contrast is recommen ded. 2. Cholelithiasis. HS:Y
[2024-08-07 18:18] LABS: Urine Bacteria None Seen /hpf (None Seen); Urine WBC None Seen /hpf (0 - 3)
[2024-08-07] MEDS ORDERED: cefTRIAXone 1GM/50ML D5W 50 ML IV ONE (19:00)
[2024-08-07] MEDS: AZITHROMYCIN 500MG/ 250ML 250 ML IV ONE (19:00)
[2024-08-07 19:04] LABS: Urine Amorphous Crystal FEW /hpf (None Seen); Urine Blood Negative /uL (Negative); Urine Clarity Ex.Turbid (Clear); Urine Color Yellow (Yellow); Urine Protein, UAD TRACE (Negative); Urine Specific Gravity 1.027 (1.001-1.035); Urine Squamous Epithelial Cell None Seen /hpf (<5); Urine Urobilinogen 4 mg/dL (Negative); Urine pH 6.5 (5.0-9.0)
--- NOTE | 2024-08-07 19:06 | DVHPNRES ---
Progress Note Date Seen: Aug 07, 2024 Resident Creating Document: LUKE HOANG RESIDENT Medical Necessity Reason Pt with a Central, PICC or Fol: No Medical Necessity Reason congestion heart failure pneumonia acute respiratory failure Subjective Review of Systems Patient is seen and examined today still in the ED. He has no new complaint he said he is feeling a lot better he was given Lasix yesterday and that has helped improve. Patient was noted to have some was noted to have difficulties with reading therefore he had reading treatment in the ED today. At the time of my evaluation patient was calm was in bed he had just had a CT of the chest done was pending and echocardiogram done which revealed an ejection fraction of 60%. Blood pressure is well controlled today at 113/67 at the time of my visit. CT of the chest reveal no evidence of pulmonary embolism, but Left upper lobe atelectasis. 3. Coronary artery disease. CT abdomen without contrast reveal Mildly heterogeneous exophytic mass in the lower pole of the right kidney measuring 6.4 x 6.8 cm concerning for primary renal malignancy. Further evaluation with MRI abdomen with contrast is recommended. Cholelithiasis. Objective vital signs Vital Sign Date Time Temp Pulse Resp B/P (MAP) Pulse Ox O2 Delivery O2 Flow Rate FiO2 08/07/24 18:00 73 14 112/70 (84) 92 08/07/24 14:16 Room Air* 0 21 08/07/24 08:00 98.5 98.5 medications Current Medications Medications Dose Ordered Sig/Tayo Route Start Time Stop Time Status Last Admin Dose Admin Nitroglycerin 0.4 mg Q5MINP PRN SL 08/06/24 19:30 Morphine Sulfate 2 mg Q30M PRN IV 08/06/24 19:30 Ipratropium [place] 0.5 mg Q4HPRN PRN NEB 08/06/24 19:45 Albuterol 2.5 mg Q4HPRN PRN NEB 08/06/24 19:45 Acetaminophen/ Hydrocodone Bitart 1 tab Q4HPRN PRN PO 08/06/24 19:45 08/07/24 10:42 1 TAB Clonidine HCl 0.1 mg Q6HP PRN PO 08/06/24 20:15 Lisinopril 2.5 mg DAILY PO 08/07/24 10:00 08/07/24 10:43 2.5 MG Metoprolol Tartrate 25 mg BID PO 08/06/24 22:00 08/07/24 10:42 25 MG Ceftriaxone Sodium 50 ml @ 100 mls/hr DAILY@09 IV 08/06/24 20:45 08/07/24 10:43 100 MLS/HR Examination General Appearance: Alert, Oriented X3, Cooperative, mild distress HEENT: Atraumatic, PERRLA, EOMI, Mucous membr. moist/pink Respiratory: Other (Physical to auscultate given body habitus) Cardiovascular: Regular rate, Normal S1, Normal S2, No murmurs Abdominal: Normal bowel sounds, Other (Grossly distended abdomen, evidence of surgical scars from previous hernia repairs) Extremities: No clubbing, No cyanosis, Other (Mild pitting edema up to the mid massey) Skin: No significant lesion Neuro: Normal gait Psych/Mental Status: Mental status NL, Mood NL, Other laboratory and microbiology Laboratory Tests 08/07/24 10:26 Test 08/07/24 10:26 Range/Units Serum Glucose 148 H 74-106 mg/dL Microbiology Date/Time Source Procedure Growth Status 08/06/24 13:00 Blood Blood Culture - Preliminary NO GROWTH AFTER 24 HOURS OF INCUBATION. Resulted Problem List/Assessment/Plan Problem List/Assessment/Plan Assessment Hypertensive heart disease Acute on chronic HFpEF Possible pneumonia gram-/ gram+ Possible COPD exacerbation, given long smoking history Acute respiratory failure, improved with breathing treatment Hypertensive urgency--> resolved Hyperlipidemia Arithritis Morbid obesity: Pending bariatric surgery History of coronary artery disease status post stent placement 2022 Kidney cancer diagnosed in 2019; --> CT abdomen: Mildly heterogeneous exophytic mass in the lower pole of the right kidney measuring 6.4 x 6.8 cm concerning for primary renal malignancy. Further evaluation with MRI abdomen with contrast is recommended. Cholelithiasis. History of hernia repair Moderatly calcified aortic valve without evidence of hemodynamically significant stenosis on echo PLAN: Furosemide 20 mg daily Azithromycin and ceftriaxone lisinopril Metoprolol 25 mg Atorvastatin [place] 5mg Ipratropium/albuterol PRN Code status: Full Goal of care discussed for 35 minute Case and plan discussed with Dr. Cordova Plan discussed with: Patient My Orders My Orders Orders - LUKE HOANG RESIDENT Procedure Category Date Status Time Admit ADMIT 08/06/24 Transmitted 19:22 Nitroglycerin PHA 08/06/24 In Process Sublingual (Ntrostat 19:30 Morphine Sulfate PHA 08/06/24 In Process Injection 19:30 Oxygen By Nasal RT 08/06/24 Transmitted Cannula 19:22 Stat Ekg For Chest LESTER 08/06/24 In Process Pain 19:22 Notify Of Changes LESTER 08/06/24 In Process From Base 19:22 Mud Analysis Well Logging Operator For LESTER 08/06/24 In Process 24 Hours 19:22 Emergency Dysrhythmia LESTER 08/06/24 In Process Protocol 19:22 Rhythm Strips Once LESTER 08/06/24 In Process Every Shift 19:22 Urinalysis LAB 08/07/24 In Process 04:00 Ipratropium Medneb PHA 08/06/24 In Process (Atrovent Medneb) 19:45 Albuterol Medneb PHA 08/06/24 In Process (Ventolin Medneb) 19:45 Hydrocodone-Acet PHA 08/06/24 In Process 5/325mg Tab ([place] 19:[address] 08/07/24 Resulted Contrast Clonidine Hcl Tablet PHA 08/06/24 In Process (Catapres Tablet) 20:15 Lisinopril Tablet PHA 08/07/24 In Process (Zestril Tablet) 10:00 Metoprolol Tartrate PHA 08/06/24 In Process Tablet (Lopressor Ta 22:00 Ceftriaxone 1gm/50ml PHA 08/06/24 In Process D5w (Rocephin) 20:45 Echo 2d Mode Cardiac US 08/07/24 Resulted DOP 19:37 Ct Ab Pel Wo Con-No CT 08/07/24 Resulted Oral Or Iv 14:04 Date of Service: Aug 07, 2024 Billing Provider: DWAYNE CORDOVA MD Common Visit Codes: [id number] INP/OBS CARE(HIGH) LUKE HOANG RESIDENT Aug 07, 2024 19:06 DWAYNE CORDOVA MD Aug 07, 2024 22:06
[2024-08-07] MEDS: FUROSEMIDE 20 MG/2 ML VIAL IV ONE (22:37)
[2024-08-07] MEDS: METOPROLOL TARTRATE 25 MG TAB PO SCH (22:38)
[2024-08-08] VITALS (10 sets, daily range): BP systolic 98–132; BP diastolic 66–83; PULSE 73–89; RESP 18–26; TEMP 97.4–98.9; O2SAT 91–97
[2024-08-08] MEDS ORDERED: FUROSEMIDE 20 MG/2 ML VIAL IV SCH (06:00)
[2024-08-08 07:27] LABS: Basophils # (auto) 0.1 10 ^3/uL (0-0.2); Basophils % (auto) 0.6 % (0.0-2.0); Eosinophils # (auto) 0.2 10 ^3/uL (0-0.8); Eosinophils % (auto) 1.9 % (0.0-7.0); Hematocrit 51.6 % (41.0-53.0); Hemoglobin 17.3 g/dL (13.5-17.5); Lymphocytes # (auto) 1.6 10 ^3/uL (0.4-5.4); Mean Corpuscular Hemoglobin 31.3 pg (28.0-32.0); Mean Corpuscular Hgb Conc. 33.5 g/dL (32.0-36.0); Mean Corpuscular Volume 93.3 fL (80.0-100.0); Monocytes # (auto) 0.5 10 ^3/uL (0-1.3); Monocytes % (auto) 6.1 % (0.0-12.0); Neutrophils # (auto) 6.1 10 ^3/uL (1.6-8.6); Neutrophils % (auto) 72.4 % (37.0-80.0); Nucleated Red Blood Cells % 0.2 %; Platelet Count (auto) 176 10^3/uL (140-450); Red Blood Cells 5.54 10^6/uL (4.5-5.90); Red Cell Distribution Width 15.5 % (11.8-14.3); White Blood Cell 8.5 10^3/uL (4.4-10.8)
[2024-08-08 07:45] LABS: Albumin 3.9 g/dL (3.2-4.8); Alkaline Phosphatase 83 U/L (46-116); Anion Gap 6 (5-15); Aspartate Aminotransferase 39 U/L (13-40); BUN/Creatinine Ratio 19.8 (10.0-20.0); Blood Urea Nitrogen 17 mg/dL (9-23); Calcium 9.6 mg/dL (8.7-10.4); Carbon Dioxide 28 mmol/L (20-31); Chloride 106 mmol/L (98-107); Potassium 3.6 mmol/L (3.5-5.1); Sodium 140 mmol/L (136-145)
[2024-08-08 07:46] LABS: Alanine Aminotransferase 43 U/L (7-40); Bilirubin, Total 2.1 mg/dL (0.2-1.0); Glucose 109 mg/dL (74-106); Total Protein 6.6 g/dL (5.7-8.2)
[2024-08-08] MEDS: cefTRIAXone 1GM/50ML D5W 50 ML IV SCH (09:07)
[2024-08-08] MEDS: FUROSEMIDE 20 MG/2 ML VIAL IV SCH (09:13)
[2024-08-08] MEDS ORDERED: OMEP1CAP70 PO (09:25)
[2024-08-08] MEDS ORDERED: ASPI81CH59 PO (09:25)
[2024-08-08] MEDS ORDERED: BUPR5DIS TOP (09:25)
[2024-08-08] MEDS: AZITHROMYCIN 500MG/ 250ML 250 ML IV SCH (10:11)
[2024-08-08] MEDS: FUROSEMIDE 20 MG/2 ML VIAL IV ONE (11:41)
[2024-08-08] MEDS ORDERED: LORazepam 2MG/ML-1ML VIAL IV PRN (21:15)
--- NOTE | 2024-08-08 21:16 | DVHPNRES ---
Progress Note Date Seen: Aug 08, 2024 Resident Creating Document: LUKE HOANG RESIDENT Medical Necessity Reason Pt with a Central, PICC or Fol: No Medical Necessity Reason HFpEF exacerbation Renal cancer, Subjective Review of Systems Patient is seen and examined today. He was lying in bed did mentioned mild shortness of breath otherwise unremarkable. I went over the CT abdominal finding with the patient that it did reveal possible renal malignancy in the right kidney. Therefore if it is okay with going to have the the the urologist and the oncologist assess him while he is here. Patient is in agreement with the plan and will continue. Blood pressure has been well controlled. It is within the normal limits and his kidney function is also stable. He is doing well with his blood pressure medications and also the CHF treatment. We will await plan from both the neurologist and the oncologist. Per note I reviewed the nurse nurse's note tonight and there was communication between the nurse and this patient's daughter. The notes say said that the patient's daughter mentioned that her father is an alcoholic and he is at risk of withdrawal. Therefore I have food on board Ativan p.r.n. in case the patient started having seizures and also started the patient on thiamine and also folic acid. Objective vital signs Vital Sign Date Time Temp Pulse Resp B/P (MAP) Pulse Ox O2 Delivery O2 Flow Rate FiO2 08/08/24 16:30 97.4 84 21 132/80 (97) 97 97.4 08/08/24 10:00 Room Air* 0 21 Total Intake and Output 08/07/24 08/07/24 08/08/24 15:00 23:00 07:00 Intake Total 300 ml 630 ml Balance 300 ml 630 ml medications Current Medications Medications Dose Ordered Sig/Tayo Route Start Time Stop Time Status Last Admin Dose Admin Nitroglycerin 0.4 mg Q5MINP PRN SL 08/06/24 19:30 Morphine Sulfate 2 mg Q30M PRN IV 08/06/24 19:30 Acetaminophen/ Hydrocodone Bitart 1 tab Q4HPRN PRN PO 08/06/24 19:45 08/07/24 10:42 1 TAB Clonidine HCl 0.1 mg Q6HP PRN PO 08/06/24 20:15 Lisinopril 2.5 mg DAILY PO 08/07/24 10:00 08/08/24 09:15 2.5 MG Azithromycin 250 ml @ 125 mls/hr DAILY IV 08/08/24 10:00 08/08/24 10:11 125 MLS/HR Ceftriaxone Sodium 50 ml @ 100 mls/hr DAILY@09 IV 08/08/24 09:00 08/08/24 09:07 100 MLS/HR Metoprolol Tartrate 25 mg DAILY PO 08/07/24 22:00 08/08/24 09:15 25 MG Atorvastatin Calcium 20 mg HS PO 08/08/24 22:00 Furosemide 40 mg DAILY IV 08/09/24 10:00 Examination General Appearance: Alert, Oriented X3, Cooperative, mild distress HEENT: Atraumatic, PERRLA, EOMI, Mucous membr. moist/pink Respiratory: Other (Physical to auscultate given body habitus) Cardiovascular: Regular rate, Normal S1, Normal S2, No murmurs Abdominal: Normal bowel sounds, Other (Grossly distended abdomen, evidence of surgical scars from previous hernia repairs) Extremities: No clubbing, No cyanosis, Other (Mild pitting edema up to the mid massey) Skin: No significant lesion Neuro: Normal gait Psych/Mental Status: Mental status NL, Mood NL, Other laboratory and microbiology Laboratory Tests 08/08/24 05:00 Test 08/08/24 05:00 Range/Units Serum Glucose 109 H 74-106 mg/dL Microbiology Date/Time Source Procedure Growth Status 08/06/24 13:00 Blood Blood Culture - Preliminary NO GROWTH AFTER 48 HOURS OF INCUBATION. Resulted Problem List/Assessment/Plan Problem List/Assessment/Plan Assessment Hypertensive heart disease Acute on chronic HFpEF Possible pneumonia gram-/ gram+ Possible COPD exacerbation, given long smoking history Acute respiratory failure, improved with breathing treatment Hypertensive urgency--> resolved Hyperlipidemia Arithritis Morbid obesity: Pending bariatric surgery History of coronary artery disease status post stent placement 2022 Kidney cancer diagnosed in 2019; --> CT abdomen: Mildly heterogeneous exophytic mass in the lower pole of the right kidney measuring 6.4 x 6.8 cm concerning for primary renal malignancy. Further evaluation with MRI abdomen with contrast is recommended. Cholelithiasis. History of hernia repair Moderately calcified aortic valve without evidence of hemodynamically significant stenosis on echo Father is Alcoholic per daughter PLAN: Increased Furosemide to 40 mg daily Azithromycin and ceftriaxone lisinopril 2.5 daily Metoprolol 25 mg bid Atorvastatin [place] 5mg Ipratropium/albuterol PRN Ativan prn thiamine and folic acid Clonidine 0.1mg q6hr prn Urology consult oncology consult Code status: Full Goal of care discussed for 25 minute Case and plan discussed with Dr. Cordova Plan discussed with: Patient My Orders My Orders Orders - LUKE HOANG Procedure Category Date Status Time Metoprolol Tartrate PHA 08/07/24 In Process Tablet (Lopressor Ta 22:00 Atorvastatin (Lipitor) PHA 08/08/24 In Process 22:00 Furosemide Injection PHA 08/09/24 In Process (Lasix Injection) 10:00 * Urology Consult CONS 08/08/24 Transmitted 12:35 Oncology REFER 08/08/24 Transmitted 12:35 Date of Service: Aug 08, 2024 Billing Provider: DWAYNE CORDOVA MD Common Visit Codes: [id number] INP/OBS CARE(HIGH) LUKE HOANG RESIDENT Aug 08, 2024 21:16 DWAYNE CORDOVA MD Aug 08, 2024 21:35
[2024-08-08] MEDS: FOLIC ACID 1 MG TAB PO ONE (22:34)
[2024-08-08] MEDS: THIAMINE HCL 100 MG TAB PO ONE (22:34)
[2024-08-08] MEDS: ATORVASTATIN 20 MG TAB PO SCH (22:35)
[2024-08-09] VITALS (10 sets, daily range): BP systolic 98–122; BP diastolic 60–91; PULSE 72–102; RESP 16–20; TEMP 97.8–98.7; O2SAT 90–99
[2024-08-09 06:32] LABS: Calcium 9.2 mg/dL (8.7-10.4); Carbon Dioxide 24 mmol/L (20-31)
[2024-08-09 06:34] LABS: Anion Gap 7 (5-15); Chloride 107 mmol/L (98-107); Potassium 3.8 mmol/L (3.5-5.1); Sodium 138 mmol/L (136-145)
[2024-08-09 06:37] LABS: Blood Urea Nitrogen 17 mg/dL (9-23)
[2024-08-09 06:41] LABS: Glucose 113 mg/dL (74-106)
[2024-08-09] MEDS: FUROSEMIDE 20 MG/2 ML VIAL IV SCH (10:30)
[2024-08-09] MEDS: FOLIC ACID 1 MG TAB PO SCH (10:39)
[2024-08-09] MEDS: THIAMINE HCL 100 MG TAB PO SCH (10:39)
--- NOTE | 2024-08-09 11:56 | DVHINCON2 ---
Date of service: Aug 09, 2024 Referring Physician . Hospitalist Reason for Consultation Incidental right renal mass on imaging study History of Present Illness Patient is admitted to [facility] for shortness of breath. During the workup and management, CT scan was performed demonstrating a 7 cm right lower pole heterogeneous renal mass suspicious for malignancy. Patient was known to have a 5.8 x 6 cm right lower pole renal mass in 2019 during his other medical related admission. He was referred to [facility] for right radical nephrectomy. He underwent stress test and was waiting for bariatric surgery to manage his obesity. He is now admitted for respiratory distress again. He is morbidly obese and a high-risk candidate for radical nephrectomy. The mass is too large for cryotherapy or radio frequency ablation 64-year-old man with a past medical history of coronary artery disease status post stent in 2022, hypertension, hyperlipidemia, kidney cancer diagnosed in 2018 presented to the ED with shortness of breaths, chest pain, and orthopnea of 1 day's duration. According to the patient he was home yesterday where he realize that he was becoming short of breath. The shortness of breath worsens whenever he tries to lying down he feels like he was about to therefore he has not been able to lie flat rather he stays up in a chair evening for sleep. He reported that in the past couple of days he has been having some intermittent cough with the production of greenish sputum and he had a little bit of chills and shaking yesterday. Given that he was unable to lie flat and also with the shortness of breath coupled with with his previous history of myocardial infarction with a stent patient decided to come to the ED for further evaluation and management. Patient's initial vitals include temperature of 97.5, pulse of 65, RR: 20 and a blood pressure of 1 84/110. Initial lab work grossly unremarkable from both hematological and chemistry. Troponin levels were negative;however BNP was a little elevated with the finding of 258. Patient had a chest x-ray done which reveal any cardiopulmonary disease however it shows some issues congestion throughout the lungs with cephalization of the veins of the vessels. Twelve lead EKG did not reveal any ST abnormalities in all the leads. Echo is currently pending. Past Medical History Cardiovascular: HTN, ID, hyperipidemia Musculoskeletal: Chronic low back pain, Osteoarthritis Past Surgical History Hernia Repair (X4) Family History: FH: breast cancer Hypertension G8 MOTHER Allergies: Coded Allergies: NO KNOWN ALLERGIES (Unverified , 08/05/18) Home Meds Reported Medications Omeprazole (Omeprazole Dr) 20 Mg Cap, 1 CAP PO DAILY for 30 Days, #30 08/08/24 Clopidogrel Bisulfate (CLOPIDOGREL) 75 Mg Tab, 1 TAB PO DAILY for 90 Days, #90 08/08/24 Aspirin (Aspirin Low Dose) 81 Mg Chw, 1 TAB PO DAILY for 90 Days, #90 08/08/24 Buprenorphine (BUTRANS) 5 Mcg/Hr Dis, 1 PATCH TOP QWEEKLY for 28 Days, #4 08/08/24 Naloxegol Oxalate (Movantik) 25 Mg Tab, 1 TAB PO DAILY for 30 Days, #30 08/08/24 Hydrochlorothiazide (Hydrochlorothiazide) 12.5 Mg Cap, 1 TAB PO DAILY for 90 Days, #90 08/08/24 Hydrocodone-Acetaminophen (Hydrocodone Bitartrate/AC 10-325 mg) 1 Tab Tab, 1 TAB PO QID for 30 Days, #120 08/08/24 Metoprolol Tartrate (Metoprolol Tartrate) 100 Mg Tab, 1 TAB PO BID for 90 Days, #180 08/08/24 Atorvastatin Calcium (Lipitor) 80 Mg Tab, 1 TAB PO HS for 90 Days, #90 08/08/24 Current Medications Current Medications Medications (Trade) Dose Ordered Sig/Tayo Route PRN Reason Start Time Stop Time Status Last Admin Atorvastatin Calcium (Lipitor) 20 mg HS PO 08/08/24 22:00 08/08/24 22:35 Furosemide (Lasix Injection) 40 mg DAILY IV 08/09/24 10:00 08/09/24 10:30 Thiamine HCl 100 mg DAILY PO 08/09/24 10:00 08/09/24 10:39 Lorazepam (Ativan Inj) 1 mg Q5MINP PRN IV SEIZURES 08/08/24 21:15 Folic Acid 1 mg DAILY PO 08/09/24 10:00 08/09/24 10:39 Ipratropium [place] (Atrovent Medneb) 0.5 mg Q6HPRN PRN NEB SHORTNESS OF BREATH 08/08/24 21:15 Albuterol (Ventolin Medneb) 2.5 mg Q6HPRN PRN NEB SHORTNESS OF BREATH 08/08/24 21:15 Review of Systems Constitutional: Yes: Chills, Sweats Eyes: Other (Patient) Respiratory: Cough, Shortness of breath, SOB with excertion Cardiovascular: Chest Pain, Palpitations, Orthopnea, Paroxysmal Noc. Dyspnea, Edema Gastrointestinal: Nausea; No: Vomiting, Abdominal Pain, Diarrhea, Constipation, Melena, Hematochezia, Other Genitourinary: No Dysuria, No Frequency, No Incontinence, No Hematuria, No Retention, No Other Musculoskeletal: shoulder pain, back pain, leg pain Skin: No: Rash, Lesions, Jaundice, Bruising, Other Neurological: No: Weakness, Numbness, Incoordination, Change in speech, C onfusion, Seizures, Other Allergies: Coded Allergies: NO KNOWN ALLERGIES (Unverified , 08/05/18) Vital Signs Vital Signs Date Time Temp Pulse Resp B/P (MAP) Pulse Ox O2 Delivery O2 Flow Rate FiO2 08/09/24 10:40 99 121/91 08/09/24 10:00 96 Room Air* 0 21 08/09/24 09:00 97.9 20 97.9 Physical Exam Vital Signs Date Time Temp Pulse Resp B/P (MAP) Pulse Ox O2 Delivery O2 Flow Rate FiO2 08/06/24 17:32 97.9 68 19 177/108 (131) 95 97.9 08/06/24 14:57 Room Air* 0 21 General Appearance: Alert, Oriented X3, Cooperative, mild distress HEENT: Atraumatic, PERRLA, EOMI, Mucous membr. moist/pink Respiratory: Other (Physical to auscultate given body habitus) Cardiovascular: Regular rate, Normal S1, Normal S2, No murmurs Abdominal: Normal bowel sounds, Other (Grossly distended abdomen, evidence of surgical scars from previous hernia repairs) Extremities: No clubbing, No cyanosis, Other (Mild pitting edema up to the mid massey) Skin: No significant lesion Neuro: Normal gait Psych/Mental Status: Mental status NL, Mood NL, Other Labs/Diagnostic Data Labs Test 08/09/24 05:28 08/08/24 21:31 08/08/24 05:00 08/07/24 10:26 Range/Units Sodium Level 138 136-145 mmol/L Potassium Level 3.8 3.5-5.1 mmol/L Chloride Level 107 98-107 mmol/L Carbon Dioxide Level 24 20-31 mmol/L Anion Gap 7 5-15 Blood Urea Nitrogen 17 9-23 mg/dL Creatinine 0.85 0.700-1.30 mg/dL Glomerular Filtration Rate Calc 98 >90 mL/min BUN/Creatinine Ratio 20.0 10.0-20.0 Serum Glucose 113 H 74-106 mg/dL Calcium Level 9.2 8.7-10.4 mg/dL Plasma/Serum Blood Alcohol 4.4 <10 mg/dL White Blood Count 8.5 4.4-10.8 10^3/uL Red Blood Count 5.54 4.5-5.90 10^6/uL Hemoglobin 17.3 13.5-17.5 g/dL Hematocrit 51.6 41.0-53.0 % Mean Corpuscular Volume 93.3 80.0-100.0 fL Mean Corpuscular Hemoglobin 31.3 28.0-32.0 pg Mean Corpuscular Hemoglobin Concent 33.5 32.0-36.0 g/dL Red Cell Distribution Width 15.5 H 11.8-14.3 % Platelet Count 176 140-450 10^3/uL Mean Platelet Volume 8.8 6.9-10.8 fL Neutrophils (%) (Auto) 72.4 37.0-80.0 % Lymphocytes (%) (Auto) 19.0 10.0-50.0 % Monocytes (%) (Auto) 6.1 0.0-12.0 % Eosinophils (%) (Auto) 1.9 0.0-7.0 % Basophils (%) (Auto) 0.6 0.0-2.0 % Neutrophils # (Auto) 6.1 1.6-8.6 10 ^3/uL Lymphocytes # (Auto) 1.6 0.4-5.4 10 ^3/uL Monocytes # (Auto) 0.5 0-1.3 10 ^3/uL Eosinophils # (Auto) 0.2 0-0.8 10 ^3/uL Basophils # (Auto) 0.1 0-0.2 10 ^3/uL Nucleated Red Blood Cells 0.2 % Total Bilirubin 2.1 H 0.2-1.0 mg/dL Aspartate Amino Transferase (AST) 39 13-40 U/L Alanine Aminotransferase (ALT) 43 H 7-40 U/L Alkaline Phosphatase 83 46-116 U/L Total Protein 6.6 5.7-8.2 g/dL Albumin 3.9 3.2-4.8 g/dL Triglycerides Level 77 < 150 mg/dL Cholesterol Level 196 < 200 mg/dL LDL Cholesterol 132 H < 100 mg/dL HDL Cholesterol 61 H 40-59 mg/dL Test 08/06/24 23:30 08/06/24 23:19 08/06/24 19:51 08/06/24 15:05 Range/Units Urine Color Yellow Yellow Urine Clarity Ex.turbid Clear Urine pH 6.5 5.0-9.0 Urine Specific [place] 1.027 1.001-1.035 Urine Protein Trace H Negative Urine Ketones 1+ H Negative Urine Blood Negative Negative /uL Urine Nitrite Negative Negative Urine Bilirubin Negative Negative Urine Urobilinogen 4 H Negative mg/dL Urine Leukocyte Esterase Negative Negative /uL Urine RBC 1 0 - 3 /hpf Urine WBC None seen 0 - 3 /hpf Urine Squamous Epithelial Cells None seen <5 /hpf Urine Amorphous Crystals Few None Seen /hpf Urine Bacteria None seen None Seen /hpf Urine Glucose 4+ H Normal mg/dL Urine Opiates Screen Neg NEGATIVE Urine Fentanyl Screen Neg NEGATIVE Urine Barbiturates Screen Neg NEGATIVE Urine Phencyclidine Screen Neg NEGATIVE Urine Amphetamines Screen Neg NEGATIVE Urine Benzodiazepines Screen Neg NEGATIVE Urine Cocaine Screen Neg NEGATIVE Urine Cannabinoids Screen Neg NEGATIVE Influenza Type A Antigen Negative Negative Influenza Type B Antigen Negative Negative Magnesium Level 1.9 1.6-2.6 mg/dL B-Type Natriuretic Peptide 180.63 0-100 pg/mL Thyroid Stimulating Hormone (TSH) 0.80 0.55-4.78 uIU/mL SARS-CoV-2 Antigen (Rapid) Negative NEGATIVE Test 08/06/24 14:23 08/06/24 13:00 Range/Units Troponin I High Sensitivity 9 </=54 ng/L Lactic Acid Level 1.0 0.4-2.0 mmol/L Microbiology Date/Time Source Procedure Growth Status 08/06/24 13:00 Blood Blood Culture - Preliminary NO GROWTH AFTER 48 HOURS OF INCUBATION. Resulted PATIENT: MINNIE MA ACCT: [id number] UNIT: [id number] : 1960 LOC: [facility] ROOM / BED: [address] [place] [address] AGE / SEX: 64 / M ADM STATUS: ADM IN SERVICE 1404 ORDERING PHYSICIAN: LUKE HOANG RESIDENT PROCEDURE(s): ABPL - CT AB PEL WO CON-NO ORAL OR IV REASON: history of kidney tumor ORDER NUMBER(s): [id number], ACCESSION NUMBER(s): [id number] CT ABDOMEN AND PELVIS WITHOUT CONTRAST CLINICAL HISTORY: history of kidney tumor TECHNIQUE: Multiple contiguous axial images of the abdomen and pelvis without intravenous contrast. The images were reformatted degenerate coronal and sagittal reconstructions. All CT scans at this medical facility are performed using dose modulation techniques as appropriate to a performed exam including the following:Automated exposure control was utilized; adjustment of the MA and/or KV according to patient size; and use of iterative reconstruction technique. Radiation Dose Information: CT Dose: CTDI volume is 25.34 mGy. Dose-length product is 1470.22 mGy*cm Comparison: None FINDINGS: Evaluation of the abdomen and pelvis is limited without intravenous contrast. There is a mildly heterogeneous exophytic mass in the lower pole of the right kidney measuring approximately 6.4 x 6.8 cm. There is no evidence of a left renal mass. There are vascular calcifications in both kidneys. There is no evidence of hydronephrosis. There are small calcified gallstones in the gallbladder. The liver, pancreas, adrenal glands, and spleen appear within normal limits. There is no gross evidence of abdominal lymphadenopathy. There is no free fluid or free air. The stomach grossly appears unremarkable. The small and large bowel loops demonstrate normal caliber. There are scattered diverticula in the distal colon without evidence of acute diverticulitis. The abdominal aorta and IVC appear within normal limits. The bladder appears unremarkable for the degree of distention. Pelvic organ appears within normal limits. There is no gross evidence of a pelvic mass. There is no free fluid collection. Lung bases are clear. There is no acute osseous abnormality. There are multilevel degenerative changes in lumbar spine. IMPRESSION: 1. Mildly heterogeneous exophytic mass in the lower pole of the right kidney me asuring 6.4 x 6.8 cm concerning for primary renal malignancy. Further evaluation with MRI abdomen with contrast is recommended. 2. Cholelithiasis. HS:Y ATED BY: KISHAN HOGAN MD DICTATED DATE/TIME: 08/07/24 1527 SIGNED BY: KISHAN HOGAN MD SIGNED DATE/TIME: 08/07/24 1527 CC: Assessment Large 7 cm right lower pole exophytic heterogeneous renal mass Plan/Recommendation Plan for outpatient management with robotic right radical nephrectomy at higher level of care Plan discussed with: Patient, Other EDWIN GONCALVES MD Aug 09, 2024 11:55
--- NOTE | 2024-08-09 18:19 | DVHPNRES ---
Progress Note Date Seen: Aug 09, 2024 Resident Creating Document: LUKE HOANG RESIDENT Medical Necessity Reason Pt with a Central, PICC or Fol: No Medical Necessity Reason Congestive heart failure Kidney cancer Subjective Review of Systems And examined today by the bedside. He did mentioned some shortness of breath which had improved. Patient denies any chills, fever, dizziness but he did mentioned having mild shortness of breath earlier this morning. He is currently on Lasix 40 mg daily and antihypertensive medications to keep his blood pressure down. Labs are grossly unremarkable and vitals are also stable. Also seen today by the urologist regarding the kidney cancer and the plan is for him to follow them outpatient management with robotic right radical nephrectomy at higher level of care. Objective vital signs Vital Sign Date Time Temp Pulse Resp B/P (MAP) Pulse Ox O2 Delivery O2 Flow Rate FiO2 08/09/24 16:54 98.7 91 18 115/70 (85) 94 98.7 08/09/24 10:00 Room Air* 0 21 Total Intake and Output 08/08/24 08/08/24 08/09/24 15:00 23:00 07:00 Intake Total 50 ml 2130 ml 400 ml Balance 50 ml 2130 ml 400 ml medications Current Medications Medications Dose Ordered Sig/Tayo Route Start Time Stop Time Status Last Admin Dose Admin Nitroglycerin 0.4 mg Q5MINP PRN SL 08/06/24 19:30 Morphine Sulfate 2 mg Q30M PRN IV 08/06/24 19:30 Acetaminophen/ Hydrocodone Bitart 1 tab Q4HPRN PRN PO 08/06/24 19:45 08/09/24 12:30 1 TAB Clonidine HCl 0.1 mg Q6HP PRN PO 08/06/24 20:15 Lisinopril 2.5 mg DAILY PO 08/07/24 10:00 08/09/24 10:39 2.5 MG Azithromycin 250 ml @ 125 mls/hr DAILY IV 08/08/24 10:00 08/09/24 12:31 125 MLS/HR Ceftriaxone Sodium 50 ml @ 100 mls/hr DAILY@09 IV 08/08/24 09:00 08/09/24 10:28 100 MLS/HR Metoprolol Tartrate 25 mg DAILY PO 08/07/24 22:00 08/09/24 10:40 25 MG Atorvastatin Calcium 20 mg HS PO 08/08/24 22:00 08/08/24 22:35 20 MG Furosemide 40 mg DAILY IV 08/09/24 10:00 08/09/24 10:30 40 MG Thiamine HCl 100 mg DAILY PO 08/09/24 10:00 08/09/24 10:39 100 MG Lorazepam 1 mg Q5MINP PRN IV 08/08/24 21:15 Folic Acid 1 mg DAILY PO 08/09/24 10:00 08/09/24 10:39 1 MG Ipratropium [place] 0.5 mg Q6HPRN PRN NEB 08/08/24 21:15 Albuterol 2.5 mg Q6HPRN PRN NEB 08/08/24 21:15 Examination General Appearance: Alert, Oriented X3, Cooperative, mild distress HEENT: Atraumatic, PERRLA, EOMI, Mucous membr. moist/pink Respiratory: Other (Physical to auscultate given body habitus) Cardiovascular: Regular rate, Normal S1, Normal S2, No murmurs Abdominal: Normal bowel sounds, Other (Grossly distended abdomen, evidence of surgical scars from previous hernia repairs) Extremities: No clubbing, No cyanosis, Other (Mild pitting edema up to the mid massey) Skin: No significant lesion Neuro: Normal gait Psych/Mental Status: Mental status NL, Mood NL, Other laboratory and microbiology Laboratory Tests 08/09/24 05:28 08/08/24 05:00 Test 08/09/24 05:28 Range/Units Serum Glucose 113 H 74-106 mg/dL Microbiology Date/Time Source Procedure Growth Status 08/06/24 13:00 Blood Blood Culture - Preliminary NO GROWTH AFTER 72 HOURS OF INCUBATION. Resulted Problem List/Assessment/Plan Problem List/Assessment/Plan Assessment Hypertensive heart disease Acute on chronic HFpEF Possible pneumonia gram-/ gram+ COPD exacerbation, given long smoking history Acute respiratory failure, improved with breathing treatment Hypertensive urgency--> resolved Hyperlipidemia Arithritis Morbid obesity: Pending bariatric surgery History of coronary artery disease status post stent placement 2022 Kidney cancer diagnosed in 2019; --> CT abdomen: Mildly heterogeneous exophytic mass in the lower pole of the right kidney measuring 6.4 x 6.8 cm concerning for primary renal malignancy. Further evaluation with MRI abdomen with contrast is recommended. Cholelithiasis. History of hernia repair Moderately calcified aortic valve without evidence of hemodynamically significant stenosis on echo Father is Alcoholic per daughter PLAN: Increased Furosemide to 40 mg daily Azithromycin and ceftriaxone lisinopril 2.5 daily Metoprolol 25 mg bid Atorvastatin [place] 5mg Ipratropium/albuterol PRN Ativan prn thiamine and folic acid Clonidine 0.1mg q6hr prn Urology consult oncology consult Code status: Full Goal of care discussed for 25 minute Case and plan discussed with Dr. Cordova Plan discussed with: Patient My Orders My Orders Orders - LUKE HOANG Procedure Category Date Status Time Thiamine Tab PHA 08/09/24 In Process 10:00 Lorazepam 2mg/Ml Inj PHA 08/08/24 In Process (Ativan Inj) 21:15 Folic Acid Tablet PHA 08/09/24 In Process 10:00 *Cons[address] Dr[address] Cristian Zamora CONS 08/08/24 Transmitted 21:08 Ipratropium Medneb PHA 08/08/24 In Process (Atrovent Medneb) 21:15 Albuterol Medneb PHA 08/08/24 In Process (Ventolin Medneb) 21:15 Date of Service: Aug 09, 2024 Billing Provider: REECE LUIS MD Common Visit Codes: [id number] INP/OBS CARE(HIGH) LUKE HOANG RESIDENT Aug 09, 2024 18:19 REECE LUIS MD Aug 09, 2024 18:27
[2024-08-09] MEDS: IPRATROPIUM BROM 0.5 MG/2.5ML INH SOL NEB PRN (21:12)
[2024-08-09] MEDS: ALBUTEROL SULF 2.5 MG/0.5ML(0.5%) NEB SOLN NEB PRN (21:12)
[2024-08-10] VITALS (14 sets, daily range): BP systolic 96–127; BP diastolic 62–78; PULSE 81–99; RESP 18–20; TEMP 97.5–98.6; O2SAT 90–97
[2024-08-10 06:12] LABS: Basophils # (auto) 0 10 ^3/uL (0-0.2); Basophils % (auto) 0.5 % (0.0-2.0); Eosinophils # (auto) 0.7 10 ^3/uL (0-0.8); Eosinophils % (auto) 7.3 % (0.0-7.0); Hematocrit 50.1 % (41.0-53.0); Hemoglobin 17.1 g/dL (13.5-17.5); Lymphocytes # (auto) 1.6 10 ^3/uL (0.4-5.4); Lymphocytes % (auto) 18.3 % (10.0-50.0); Mean Corpuscular Hemoglobin 31.7 pg (28.0-32.0); Mean Corpuscular Hgb Conc. 34.1 g/dL (32.0-36.0); Mean Corpuscular Volume 92.8 fL (80.0-100.0); Monocytes # (auto) 0.6 10 ^3/uL (0-1.3); Monocytes % (auto) 6.9 % (0.0-12.0); Nucleated Red Blood Cells % 0.2 %; Platelet Count (auto) 169 10^3/uL (140-450); Red Blood Cells 5.39 10^6/uL (4.5-5.90); Red Cell Distribution Width 15.2 % (11.8-14.3); White Blood Cell 8.9 10^3/uL (4.4-10.8)
[2024-08-10 06:16] LABS: Anion Gap 5 (5-15); Carbon Dioxide 29 mmol/L (20-31); Chloride 104 mmol/L (98-107); Potassium 3.6 mmol/L (3.5-5.1); Sodium 138 mmol/L (136-145)
[2024-08-10 06:17] LABS: Calcium 9.6 mg/dL (8.7-10.4)
[2024-08-10 06:22] LABS: BUN/Creatinine Ratio 17.5 (10.0-20.0); Blood Urea Nitrogen 17 mg/dL (9-23)
[2024-08-10 06:54] LABS: Glucose 111 mg/dL (74-106)
--- NOTE | 2024-08-10 14:21 | DVHPN2 ---
Subjective The patient seen and examined at bedside. He is worry about his renal mass. Reviewed: Care Plan, H&P, Labs, Medications, Previous Orders, Radiology Changes from previous H/P or p: No Changes Eyes: Other (Patient) Cardiovascular: Chest Pain, Palpitations, Orthopnea, Paroxysmal Noc. Dyspnea, E anusha Respiratory: Cough, Shortness of breath, SOB with excertion Gastrointestinal: Nausea; No Vomiting, No Abdominal Pain, No Diarrhea, No Constipation, No Melena, No Hematochezia, No Other Genitourinary: No Dysuria, No Frequency, No Incontinence, No Hematuria, No Retention, No Other Musculoskeletal: shoulder pain, back pain, leg pain Skin: No Rash, No Lesions, No Jaundice, No Bruising, No Other Objective Vitals Vital Signs Date Time Temp Pulse Resp B/P (MAP) Pulse Ox O2 Delivery O2 Flow Rate FiO2 08/10/24 13:00 97.6 88 18 127/78 (94) 92 97.6 08/10/24 10:00 Room Air 0.0 08/10/24 10:00 21 Intake/Output Intake and Output 08/10/24 07:00 Intake Total 2770 ml Balance 2770 ml Intake Oral 2470 ml IV Total 300 ml # Voids 3 General Appearance: Alert, Oriented X3, Cooperative HEENT: Atraumatic, PERRLA, EOMI, Mucous membr. moist/pink Neck: Supple Lungs: Clear to auscultation, Normal air movement Cardiovascular: Regular rate, Normal S1, Normal S2, No murmurs, Gallops, Rubs Abdomen: Normal bowel sounds, Soft, No tenderness Neuro: Cranial nerves 3-12 NL Psych/Mental Status: Mental status NL Medications Current Medications Medications Dose Ordered Sig/Tayo Route Start Time Stop Time Status Last Admin Dose Admin Nitroglycerin 0.4 mg Q5MINP PRN SL 08/06/24 19:30 Morphine Sulfate 2 mg Q30M PRN IV 08/06/24 19:30 Acetaminophen/ Hydrocodone Bitart 1 tab Q4HPRN PRN PO 08/06/24 19:45 08/09/24 12:30 1 TAB Clonidine HCl 0.1 mg Q6HP PRN PO 08/06/24 20:15 Lisinopril 2.5 mg DAILY PO 08/07/24 10:00 08/10/24 10:28 2.5 MG Azithromycin 250 ml @ 125 mls/hr DAILY IV 08/08/24 10:00 08/10/24 10:17 125 MLS/HR Ceftriaxone Sodium 50 ml @ 100 mls/hr DAILY@09 IV 08/08/24 09:00 08/10/24 08:42 100 MLS/HR Metoprolol Tartrate 25 mg DAILY PO 08/07/24 22:00 08/10/24 10:27 25 MG Atorvastatin Calcium 20 mg HS PO 08/08/24 22:00 08/09/24 20:53 20 MG Furosemide 40 mg DAILY IV 08/09/24 10:00 08/10/24 11:01 40 MG Thiamine HCl 100 mg DAILY PO 08/09/24 10:00 08/10/24 10:12 100 MG Lorazepam 1 mg Q5MINP PRN IV 08/08/24 21:15 Folic Acid 1 mg DAILY PO 08/09/24 10:00 08/10/24 10:13 1 MG Ipratropium [place] 0.5 mg Q6HPRN PRN NEB 08/08/24 21:15 08/09/24 21:12 0.5 MG Albuterol 2.5 mg Q6HPRN PRN NEB 08/08/24 21:15 08/09/24 21:12 2.5 MG Laboratory Results Laboratory Tests 08/10/24 04:57 Chemistry Test 08/10/24 04:57 Calcium Level 9.6 mg/dL (8.7-10.4) Urinalysis Test 08/06/24 23:30 Urine Color Yellow (Yellow) Urine Clarity Ex.turbid (Clear) Urine pH 6.5 (5.0-9.0) Urine Specific [place] 1.027 (1.001-1.035) Urine Protein Trace (Negative) H Urine Ketones 1+ (Negative) H Urine Blood Negative /uL (Negative) Urine Nitrite Negative (Negative) Urine Bilirubin Negative (Negative) Urine Urobilinogen 4 mg/dL (Negative) H Urine Leukocyte Esterase Negative /uL (Negative) Urine RBC 1 /hpf (0 - 3) Urine WBC None seen /hpf (0 - 3) Urine Squamous Epithelial Cells None seen /hpf (<5) Urine Amorphous Crystals Few /hpf (None Seen) Urine Bacteria None seen /hpf (None Seen) Urine Glucose 4+ mg/dL (Normal) H Microbiology Microbiology Date/Time Source Procedure Growth Status 08/06/24 13:00 Blood Blood Culture - Preliminary NO GROWTH AFTER 72 HOURS OF INCUBATION. Resulted Labs and/or images reviewed: Labs reviewed by me Assessment/Plan Assessment/Plan Hypertensive heart disease Acute on chronic HFpEF Possible pneumonia gram-/ gram+ COPD exacerbation, given long smoking history Acute respiratory failure, improved with breathing treatment Hypertensive urgency--> resolved Hyperlipidemia Arithritis Morbid obesity: Pending bariatric surgery History of coronary artery disease status post stent placement 2022 Kidney cancer diagnosed in 2018; --> CT abdomen: Mildly heterogeneous exophytic mass in the lower pole of the right kidney measuring 6.4 x 6.8 cm concerning for primary renal malignancy. Further evaluation with MRI abdomen with contrast is recommended. Cholelithiasis. History of hernia repair Moderately calcified aortic valve without evidence of hemodynamically significant stenosis on echo Father is Alcoholic per daughter PLAN: Continue Furosemide to 40 mg daily Continue Azithromycin and ceftriaxone lisinopril 2.5 daily Metoprolol 25 mg bid Atorvastatin [place] 5mg Ipratropium/albuterol PRN Ativan prn thiamine and folic acid Clonidine 0.1mg q6hr prn Urology consult input appreciate, Dr. Mcbride recommend outpatient management with robotic right radical nephrectomy at higher level of care Waiting for oncology consult Discharge planning This medical document was created using an electronic medical record system with [employer] direct computerized dictation system. Although this document has been carefully reviewed, there may still be some phonetic and typographical errors. These areas are purely typographical due to imperfections of the software programs, and do not reflect any compromise in the patient's medical care. Plan discussed with: Patient Date of Service: Aug 10, 2024 Billing Provider: DWAYNE PEREZ MD Common Visit Codes: [id number] INP/OBS CARE(HIGH) DWAYNE PEREZ MD Aug 10, 2024 14:21
[2024-08-10] MEDS: ACETAMINOPHEN 325 MG TAB PO PRN (16:29)
[2024-08-11] VITALS (10 sets, daily range): BP systolic 97–125; BP diastolic 66–93; PULSE 88–106; RESP 17–20; TEMP 97.6–98; O2SAT 91–94
--- NOTE | 2024-08-11 14:21 | DVHDSRES ---
Discharge Summary Date of Admission Resident Creating Document: LUKE HOANG RESIDENT Aug 06, 2024 at 19:22 Date of Discharge: Aug 11, 2024 Admitting Diagnosis Congestive heart failure Labs/Diagnostic Data: PATIENT: MINNIE MA ACCT: [id number] UNIT: [id number] : 1960 LOC: TELE ROOM / BED: [address] [place] [address] AGE / SEX: 64 / M ADM STATUS: ADM IN SERVICE 1404 ORDERING PHYSICIAN: LUKE HOANG PROCEDURE(s): ABPL - CT AB PEL WO CON-NO ORAL OR IV REASON: history of kidney tumor ORDER NUMBER(s): [id number], ACCESSION NUMBER(s): [id number] CT ABDOMEN AND PELVIS WITHOUT CONTRAST CLINICAL HISTORY: history of kidney tumor TECHNIQUE: Multiple contiguous axial images of the abdomen and pelvis without intravenous contrast. The images were reformatted degenerate coronal and sagittal reconstructions. All CT scans at this medical facility are performed using dose modulation techniques as appropriate to a performed exam including the following:Automated exposure control was utilized; adjustment of the MA and/or KV according to patient size; and use of iterative reconstruction technique. Radiation Dose Information: CT Dose: CTDI volume is 25.34 mGy. Dose-length product is 1470.22 mGy*cm Comparison: None FINDINGS: Evaluation of the abdomen and pelvis is limited without intravenous contrast. There is a mildly heterogeneous exophytic mass in the lower pole of the right kidney measuring approximately 6.4 x 6.8 cm. There is no evidence of a left renal mass. There are vascular calcifications in both kidneys. There is no evidence of hydronephrosis. There are small calcified gallstones in the gallbladder. The liver, pancreas, adrenal glands, and spleen appear within normal limits. There is no gross evidence of abdominal lymphadenopathy. There is no free fluid or free air. The stomach grossly appears unremarkable. The small and large bowel loops demonstrate normal caliber. There are scattered diverticula in the distal colon without evidence of acute diverticulitis. The abdominal aorta and IVC appear within normal limits. The bladder appears unremarkable for the degree of distention. Pelvic organ appears within normal limits. There is no gross evidence of a pelvic mass. There is no free fluid collection. Lung bases are clear. There is no acute osseous abnormality. There are multilevel degenerative changes in lumbar spine. IMPRESSION: 1. Mildly heterogeneous exophytic mass in the lower pole of the right kidney measuring 6.4 x 6.8 cm concerning for primary renal malignancy. Further evaluation with MRI abdomen with contrast is recommended. 2. Cholelithiasis. HS:Y ATED BY: KISHAN HOGAN MD DICTATED DATE/TIME: 08/07/24 1527 PATIENT: MINNIE MA ACCT: [id number] UNIT: [id number] : 1960 LOC: TELE ROOM / BED: [address] [place] [address] AGE / SEX: 64 / M ADM STATUS: ADM IN SERVICE 0000 ORDERING PHYSICIAN: LUKE HOANG RESIDENT PROCEDURE(s): CTACH - CT ANGIO CHEST CONTRAST REASON: rule out pe ORDER NUMBER(s): [id number], ACCESSION NUMBER(s): [id number] CTA Chest with intravenous contrast INDICATION: rule out pe COMPARISON: CT ANGIO CHEST CONTRAST on DOS: 08/16/19 TECHNIQUE: Multidetector spiral CTA of the chest was performed of the chest with intravenous contrast. PULMONARY ANGIOGRAPHY PROTOCOL was utilized using a bolus-tracking technique centered on the main pulmonary artery. Coronal and sagittal multiplanar and MIP reformats were performed. Radiation Dose : 1. Chest: CTDI volume is 29.2 mGy. Dose-length product is 1109.5 mGy*cm The dose indicators for CT are the volume Computed Tomography (CT) Dose Index (CTDIvol) and the Dose Length Product (DLP), and are measured in units of mGy and mGy-cm, respectively. These indicators are not patient dose, but values generated from the CT scanner acquisition factors. The report includes radiation exposure data for exposures received during this examination. FINDINGS: Pulmonary artery: No central, lobar or proximal segmental pulmonary embolus. Lower neck: Thyroid is unremarkable. Lungs: No suspicious pulmonary nodules. There is atelectasis in the left upper lobe. Trachea and central airways: Patent. Pleura: No pneumothorax. No pleural effusions. Heart/Vascular Structures: The heart is normal in size. There are coronary artery calcifications. No pericardial effusion. Thoracic aorta is normal in caliber. No aneurysm or dissection. Lymph Nodes: No mediastinal or hilar lymphadenopathy. Esophagus:Grossly unremarkable. Musculoskeletal: Multiple old left rib fractures. Multilevel thoracic spondylosis. Body wall: Unremarkable. Upper abdomen: Gallstones. IMPRESSION: 1. No evidence of pulmonary embolism. 2. Left upper lobe atelectasis. 3. Coronary artery disease. 4. Gallstones. ATED BY: JERRY COX MD DICTATED DATE/TIME: 08/07/24 0851 PATIENT: MINNIE MA ACCT: [id number] UNIT: [id number] : 1960 LOC: ER ROOM / BED: / AGE / SEX: 64 / M ADM STATUS: REG ER SERVICE 1157 ORDERING PHYSICIAN: BABAK SPARKS MD PROCEDURE(s): CXRP - CHEST PORTABLE REASON: sob ORDER NUMBER(s): [id number], ACCESSION NUMBER(s): [id number] EXAM: XY CHEST PORTABLE Indication: sob Technique: Single frontal view of the chest was obtained Comparison: CHEST PORTABLE on DOS: 09/14/22, CXRP on DOS: 09/14/22 FINDINGS: Lines and Tubes: None Lungs: No focal consolidation. Pleura: No effusion. No pneumothorax. Cardiomediastinal contours: Unremarkable Bones: No acute osseous abnormality. IMPRESSION: No acute cardiopulmonary disease. ATED BY: JERAMIE GROVE MD DICTATED DATE/TIME: 08/06/24 1245 Laboratory Results Test 08/10/24 04:57 08/08/24 21:31 08/08/24 05:00 08/07/24 10:26 White Blood Count 8.9 10^3/uL (4.4-10.8) Red Blood Count 5.39 10^6/uL (4.5-5.90) Hemoglobin 17.1 g/dL (13.5-17.5) Hematocrit 50.1 % (41.0-53.0) Mean Corpuscular Volume 92.8 fL (80.0-100.0) Mean Corpuscular Hemoglobin 31.7 pg (28.0-32.0) Mean Corpuscular Hemoglobin Concent 34.1 g/dL (32.0-36.0) Red Cell Distribution Width 15.2 % (11.8-14.3) Platelet Count 169 10^3/uL (140-450) Mean Platelet Volume 8.2 fL (6.9-10.8) Neutrophils (%) (Auto) 67.0 % (37.0-80.0) Lymphocytes (%) (Auto) 18.3 % (10.0-50.0) Monocytes (%) (Auto) 6.9 % (0.0-12.0) Eosinophils (%) (Auto) 7.3 % (0.0-7.0) Basophils (%) (Auto) 0.5 % (0.0-2.0) Neutrophils # (Auto) 6.0 10 ^3/uL (1.6-8.6) Lymphocytes # (Auto) 1.6 10 ^3/uL (0.4-5.4) Monocytes # (Auto) 0.6 10 ^3/uL (0-1.3) Eosinophils # (Auto) 0.7 10 ^3/uL (0-0.8) Basophils # (Auto) 0 10 ^3/uL (0-0.2) Nucleated Red Blood Cells 0.2 % Sodium Level 138 mmol/L (136-145) Potassium Level 3.6 mmol/L (3.5-5.1) Chloride Level 104 mmol/L (98-107) Carbon Dioxide Level 29 mmol/L (20-31) Anion Gap 5 (5-15) Blood Urea Nitrogen 17 mg/dL (9-23) Creatinine 0.97 mg/dL (0.700-1.30) Glomerular Filtration Rate Calc 88 mL/min (>90) BUN/Creatinine Ratio 17.5 (10.0-20.0) Serum Glucose 111 mg/dL (74-106) Calcium Level 9.6 mg/dL (8.7-10.4) Plasma/Serum Blood Alcohol 4.4 mg/dL (<10) Total Bilirubin 2.1 mg/dL (0.2-1.0) Aspartate Amino Transferase (AST) 39 U/L (13-40) Alanine Aminotransferase (ALT) 43 U/L (7-40) Alkaline Phosphatase 83 U/L (46-116) Total Protein 6.6 g/dL (5.7-8.2) Albumin 3.9 g/dL (3.2-4.8) Triglycerides Level 77 mg/dL (< 150) Cholesterol Level 196 mg/dL (< 200) LDL Cholesterol 132 mg/dL (< 100) HDL Cholesterol 61 mg/dL (40-59) Test 08/06/24 23:30 08/06/24 23:19 08/06/24 19:51 08/06/24 15:05 Urine Color Yellow (Yellow) Urine Clarity Ex.turbid (Clear) Urine pH 6.5 (5.0-9.0) Urine Specific [place] 1.027 (1.001-1.035) Urine Protein Trace (Negative) Urine Ketones 1+ (Negative) Urine Blood Negative /uL (Negative) Urine Nitrite Negative (Negative) Urine Bilirubin Negative (Negative) Urine Urobilinogen 4 mg/dL (Negative) Urine Leukocyte Esterase Negative /uL (Negative) Urine RBC 1 /hpf (0 - 3) Urine WBC None seen /hpf (0 - 3) Urine Squamous Epithelial Cells None seen /hpf (<5) Urine Amorphous Crystals Few /hpf (None Seen) Urine Bacteria None seen /hpf (None Seen) Urine Glucose 4+ mg/dL (Normal) Urine Opiates Screen Neg (NEGATIVE) Urine Fentanyl Screen Neg (NEGATIVE) Urine Barbiturates Screen Neg (NEGATIVE) Urine Phencyclidine Screen Neg (NEGATIVE) Urine Amphetamines Screen Neg (NEGATIVE) Urine Benzodiazepines Screen Neg (NEGATIVE) Urine Cocaine Screen Neg (NEGATIVE) Urine Cannabinoids Screen Neg (NEGATIVE) Influenza Type A Antigen Negative (Negative) Influenza Type B Antigen Negative (Negative) Magnesium Level 1.9 mg/dL (1.6-2.6) B-Type Natriuretic Peptide 180.63 pg/mL (0-100) Thyroid Stimulating Hormone (TSH) 0.80 uIU/mL (0.55-4.78) SARS-CoV-2 Antigen (Rapid) Negative (NEGATIVE) Test 08/06/24 14:23 08/06/24 13:00 Troponin I High Sensitivity 9 ng/L (</=54) Lactic Acid Level 1.0 mmol/L (0.4-2.0) Other Laboratory Tests 08/10/24 04:57 Brief Hx & Hospital Course: Hospital course: This 64-year-old man with a past medical history of coronary artery disease s/p stent in 2022, hypertension, hyperlipidemia, kidney cancer ( diagnosed in 2019) presented to the ED with shortness of breaths, chest pain, and orthopnea of 1 day's duration. According to the patient, he was at home when he started feeling short of breath. Shortness of breath worsens whenever he tries to lying flat. He feels like he was about to . He also reported intermittent cough with greenish sputum and he had a little bit of chills and shaking a day prior to coming to the ED. His initial vitals read temp of 97.5, pulse of 65, RR: 20 and a blood pressure of 184/110. Initial lab work grossly unremarkable from both hematological and chemistry. Troponin levels were negative; however, BNP: 258. Chest x-ray reveal congestion throughout the lungs with cephalization of the veins of the vessels. Twelve lead EKG did not reveal any ST abnormalities in all the leads. Patient has been managed for HFpEF exacerbation, COPD exacerbation, early pneumonia. Echo showed an EF 60%. Patient was managed for HFpEF, hypertensive urgency, COPD exacerbation, and acute respiratory failure with furosemide, lisinopril and metoprolol. Breathing test schedule and as needed and on oxygen requirement as needed. Of note, abdominal CT scan showed a tumor in his right kidney which shows the potential of a primary malignancy. Urology saw the patient and recommended an outpatient workup and surgical management. From a clinical standpoint, patient doing well, breathing is improved and no more feeling of lung congestion. Examination General Appearance: Alert, Oriented X3, Cooperative, mild distress HEENT: Atraumatic, PERRLA, EOMI, Mucous membr. moist/pink Respiratory: Other (Physical to auscultate given body habitus) Cardiovascular: Regular rate, Normal S1, Normal S2, No murmurs Abdominal: Normal bowel sounds, Other (Grossly distended abdomen, evidence of surgical scars from previous hernia repairs) Extremities: No clubbing, No cyanosis, Other (Mild pitting edema up to the mid massey) Skin: No significant lesion Neuro: Normal gait Psych/Mental Status: Mental status NL, Mood NL, Othe Diagnoses Hypertensive heart disease Acute on chronic HFpEF Possible pneumonia gram-/ gram+ COPD exacerbation, given long smoking history Acute respiratory failure, improved with breathing treatment Hypertensive urgency Hyperlipidemia Arthritis Morbid obesity: Pending bariatric surgery History of coronary artery disease status post stent placement 2022 Kidney cancer History of hernia repair Moderately calcified aortic valve without evidence of hemodynamically significant stenosis on echo Discharge PLAN Continue home medications Continue Furosemide to 40 mg P.O daily lisinopril 2.5 daily Metoprolol 25 mg bid Atorvastatin Azithromycin 500mg daily 1 x Follow up with urologist outpatient Followup at the discharge clinic Return to ED if symptoms return Case and discharge plan plan discussed with Dr. Maldonado Consults/Reason for consult Incidental right renal mass on imaging study Condition at Discharge: Good Final Diagnosis/Problems List Hypertensive heart disease Acute on chronic HFpEF Possible pneumonia gram-/ gram+ COPD exacerbation, given long smoking history Acute respiratory failure Hypertensive urgency Hyperlipidemia Arithritis Morbid obesity: Pending bariatric surgery History of coronary artery disease status post stent placement 2022 Kidney tumor Cholelithiasis. History of hernia repair Moderately calcified aortic valve without evidence of hemodynamically significant stenosis on echo Discharge Disposition: Home Discharge Statement: "Patient was advised to return to the ER or call 911 if any headaches, dizziness, shortness of breath, chest pain, abdominal pain, bleeding, fevers, or worsening of medical condition. Patient was counseled about treatment plan, medications, possible side effects, patientverbalized understanding. All questions were answered to the best of my ability. This discharge took greater then 30 minutes in planning, reviewing documentation, counseling the patient, and discussing with other team members." ASSESSMENT ASSESSMENT Assessment LUKE HOANG RESIDENT Aug 11, 2024 14:20
[2024-08-11] MEDS ORDERED: AZIT-185 PO (14:43)
[2024-08-11] MEDS ORDERED: FUR20I IV (14:43)
[2024-08-11] MEDS ORDERED: ACET-1882 PO (14:43)
[2024-08-11] MEDS ORDERED: MET25T PO (14:43)
[2024-08-11] MEDS ORDERED: LISI-275 PO (14:43)
== END 2024-08-11 18:30 | disposition home or self-care (01) | DRG 194 ==
LOC: EDBD 11:42 → ER 11:55 → TELE 19:22 → TELE-WESTW 08-07 18:17
PROVIDERS: ADMIT Internal Medicine; ATTEND Internal Medicine
DX: I11.0 Hypertensive heart disease with heart failure (principal); J44.0 Chronic obstructive pulmonary disease with (acute) lower respiratory infection; J44.1 Chronic obstructive pulmonary disease with (acute) exacerbation; I50.33 Acute on chronic diastolic (congestive) heart failure; Z68.43 Body mass index [BMI] 50.0-59.9, adult; J98.01 Acute bronchospasm; Z20.822 Contact with and (suspected) exposure to COVID-19; I16.0 Hypertensive urgency; E66.01 Morbid (severe) obesity due to excess calories; E78.5 Hyperlipidemia, unspecified; I25.10 Atherosclerotic heart disease of native coronary artery without angina pectoris; R06.03 Acute respiratory distress; K80.20 Calculus of gallbladder without cholecystitis without obstruction; I35.8 Other nonrheumatic aortic valve disorders; N28.89 Other specified disorders of kidney and ureter; Z90.5 Acquired absence of kidney; Z95.5 Presence of coronary angioplasty implant and graft; Z87.891 Personal history of nicotine dependence; Z85.528 Personal history of other malignant neoplasm of kidney; Z82.49 Family history of ischemic heart disease and other diseases of the circulatory system; Z80.3 Family history of malignant neoplasm of breast; Z79.82 Long term (current) use of aspirin; Z79.899 Other long term (current) drug therapy
CPT/HCPCS: 36415; 71045; 71275; 74176; 80048; 80053; 80061; 80307; 80320; 81001; 82962; 83605; 83735; 83880; 84443; 84484; 85025; 87040; 87426; 87804; 93005; 93306; 94640; G0378